=== PATIENT | female | born 1940 | race Caucasian/White ===

== ENCOUNTER → 2017-12-26 11:58 | Outpatient (CLI) | payer MEDICARE, SELFPAY ==
[2017-12-26 14:13] LABS: Absolute Lymphocyte Count 1.49 X10^3/ul (0.83-4.51); Absolute Neutrophil Count 2.7 X10^3/uL (2.0-7.7); Basophil# 0.02 X10^3/uL; Basophil% 0.4 % (0-1); Eosinophil# 0.17 X10^3/uL; Eosinophils% 3.5 % (0-5); Hematocrit 42.3 % (37-47); Hemoglobin 13.3 g/dl (12.0-15.0); Lymphocyte # 1.49 X10^3/ul (4.0); Lymphocyte % 30.9 % (19-41); Mean Corp Hgb Conc 31.4 g/gl (32-36); Mean Corpuscular Hgb 28.1 pg (27.0-32.0); Mean Corpuscular Volume 89.2 fL (81-99); Mean Platelet Vol. 9.1 fl (6.2-12.0); Monocyte# 0.43 X10^3/uL; Monocyte% 8.9 % (0-10); Neutrophil % 56.1 % (47-70); Platelet Count 327 K/mm3 (150-450); RBC Distribution Width CV 13.2 % (11.6-14.6); RBC Distribution Width SD 43.3 fl (35.1-43.9); Red Blood Count 4.74 M/mm3 (4.2-5.4); White Blood Count 4.8 K/mm3 (4.4-11.0)
[2017-12-26 14:14] LABS: POSITIVE COUNT NO; POSITIVE DIFFERENTIAL NO; POSITIVE MORPHOLOGY NO
[2017-12-26 14:49] LABS: ALB/GLOB Ratio 0.9 RATIO (0.9-2.4); AST(SGOT) 20 U/L (15-37); Alanine Aminotransfer ALT/SGPT 25 U/L (13-56); Albumin, Serum 3.6 g/dL (3.2-5.0); Alkaline Phosphatase 83 U/L (45-117); Anion Gap 7 (5-15); BUN 11 mg/dL (7-18); BUN/Creat Ratio 14.2 RATIO (10-20); Calcium,Total 8.6 mg/dL (8.5-10.1); Chloride 104 mmol/L (98-107); Creatinine, Serum 0.77 mg/dL (0.55-1.02); EST Glomerular Filtration Rate 77 mL/min (>60); Est Glom Filt Rate - Afr Amer 93 mL/min (>60); Free T3 2.9 pg/mL (2.18-3.98); Globulin 3.8 g/dL (2.2-4.2); Glucose 76 mg/dL (74-106); Protein, Total 7.4 g/dL (6.4-8.2); Sodium Level 138 mmol/L (136-145); T4 Free Direct 1.01 ng/dL (0.76-1.46); Thyroid Stim Hormone (TSH) 1.64 uIU/mL (0.358-3.74)
== END ==
PROVIDERS: Family Provider Family Medicine; PCP Family Medicine; Visit Provider Family Medicine
DX: E03.9 Hypothyroidism, unspecified (principal); R51 Headache
CPT/HCPCS: 36415; 80053; 84439; 84443; 84481; 85025

== ENCOUNTER → 2018-06-27 12:04 | Outpatient (CLI) | payer MEDICARE, SELFPAY ==
[2018-06-27 14:39] LABS: T4 Free Direct 0.81 ng/dL (0.76-1.46); Thyroid Stim Hormone (TSH) 7.64 uIU/mL (0.358-3.74)
== END ==
PROVIDERS: Family Provider Family Medicine; PCP Family Medicine; Visit Provider Family Medicine
DX: E03.9 Hypothyroidism, unspecified (principal)
CPT/HCPCS: 36415; 84439; 84443; 84481

== ENCOUNTER → 2018-09-26 11:59 | Outpatient (CLI) | payer MEDICARE, SELFPAY ==
[2018-09-26 14:21] LABS: Free T3 3.9 pg/mL (2.18-3.98); T4 Free Direct 1.82 ng/dL (0.76-1.46); Thyroid Stim Hormone (TSH) < 0.01 uIU/mL (0.358-3.74)
== END ==
PROVIDERS: Family Provider Family Medicine; PCP Family Medicine; Visit Provider Family Medicine
DX: E03.9 Hypothyroidism, unspecified (principal)
CPT/HCPCS: 36415; 84439; 84443; 84481

== ENCOUNTER → 2018-10-29 11:54 | Outpatient (CLI) | payer MEDICARE, SELFPAY ==
[2018-10-29 14:02] LABS: T4 Free Direct 1.29 ng/dL (0.76-1.46); Thyroid Stim Hormone (TSH) 0.07 uIU/mL (0.358-3.74)
== END ==
PROVIDERS: Family Provider Family Medicine; PCP Family Medicine; Visit Provider Family Medicine
DX: E03.9 Hypothyroidism, unspecified (principal)
CPT/HCPCS: 36415; 84439; 84443

== ENCOUNTER → 2019-01-09 15:32 | Outpatient (CLI) | payer MEDICARE, SELFPAY ==
[2019-01-09 18:12] LABS: T4 Free Direct 1.17 ng/dL (0.76-1.46); Thyroid Stim Hormone (TSH) 0.56 uIU/mL (0.358-3.74)
== END ==
PROVIDERS: Family Provider Family Medicine; PCP Family Medicine; Referring Provider Family Medicine; Visit Provider Family Medicine
DX: E03.9 Hypothyroidism, unspecified (principal)
CPT/HCPCS: 36415; 84439; 84443

== ENCOUNTER → 2019-04-10 | Outpatient (CLI) | payer MEDICARE, SELFPAY ==
[2019-04-10 15:26] LABS: Hematocrit 38.8 % (37-47); Hemoglobin 12.7 g/dl (12.0-15.0); Mean Corp Hgb Conc 32.7 g/gl (32-36); Mean Corpuscular Hgb 28.5 pg (27.0-32.0); Mean Corpuscular Volume 87.2 fL (81-99); Mean Platelet Vol. 9.1 fl (6.2-12.0); Platelet Count 269 K/mm3 (150-450); RBC Distribution Width CV 13.3 % (11.6-14.6); RBC Distribution Width SD 41.6 fl (35.1-43.9); Red Blood Count 4.45 M/mm3 (4.2-5.4)
[2019-04-10 15:27] LABS: Scan Indicated on CBC? Y/N NO
[2019-04-10 16:03] LABS: Vitamin B12 1435 pg/mL (211-911)
[2019-04-10 16:32] LABS: Anion Gap 7 (5-15); BUN 14 mg/dL (7-18); BUN/Creat Ratio 15.5 RATIO (10-20); Calcium,Total 8.9 mg/dL (8.5-10.1); Chloride 102 mmol/L (98-107); Cholesterol 218 mg/dL (200); EST Glomerular Filtration Rate 64 mL/min (>60); Est Glom Filt Rate - Afr Amer 77 mL/min (>60); Glucose 87 mg/dL (74-106); High Density Lipoprotein 71 mg/dL; Potassium 3.9 mmol/L (3.5-5.1); Sodium Level 139 mmol/L (136-145); T4 Free Direct 1.02 ng/dL (0.76-1.46)
== END | disposition home or self-care (01) ==
PROVIDERS: Family Provider Family Medicine; PCP Family Medicine; Referring Provider Family Medicine; Visit Provider Family Medicine
DX: E03.9 Hypothyroidism, unspecified (principal); G31.84 Mild cognitive impairment of uncertain or unknown etiology
CPT/HCPCS: 36415; 80048; 82465; 82607; 82746; 83718; 84439; 84443; 84481; 85027

== ENCOUNTER 2019-05-20 06:56 | Day surgery (SDC) | payer MEDICARE, SELFPAY ==
--- NOTE | 2019-05-05 01:35 | HP_ITS ---
Intake Vital Signs 05/06/19 Blood Pressure 176/82 H 05/06/19 Blood Pressure Location Rt brachial 05/05/19 Height 5 ft 05/05/19 Weight: 128 lb 05/05/19 Body Mass Index (BMI) 25.0 05/05/19 Blood Pressure 188/82 H 05/05/19 Blood Pressure Location Rt brachial 05/05/19 Respiratory Rate 14 05/05/19 Pulse Rate 74 05/05/19 Pulse Source Monitor 05/05/19 Temperature 98.3 F 05/05/19 Pulse Ox 99 05/05/19 Oxygen Delivery Method room air Intake Visit Reasons: C-Scope Consult/Last C-Scope Jabier 2011 [place] Therapist Required: No Is patient in pain?: No Allergies codeine Allergy (Unknown, Verified 05/05/19 13:18) Unknown shellfish derived Allergy (Unknown, Verified 05/05/19 13:18) Unknown Medications fluticasone propionate 50 mcg/actuation nasal spray,suspension 1 spray INTRANASAL DAILY PRN 05/05/19 [History Confirmed 05/05/19] levothyroxine 75 mcg capsule 75 mcg PO DAILY 05/05/19 [History] sodium chloride 0.65 % nasal spray aerosol 1 spray INTRANASAL ONCE 05/05/19 [History Confirmed 05/05/19] PFSH Medical History Elevated blood pressure reading in office without diagnosis of hypertension (Acute) Hemorrhoids (Acute) Thyroid disease (Acute) Surgical History Hx of dilation and curettage (Acute) Hx of colonoscopy (Acute) Family History Sister Colon cancer Liver cancer CVA (cerebral vascular accident) Thyroid disorder Brother Diabetes Sister Thyroid disorder Daughter Thyroid disorder Social History (Updated 05/05/19 @ 13:36 by Boris Irwin MD) Smoking Status: Never smoker second hand exposure: No alcohol intake: never substance use type: does not use caffeine: Yes what type of physical activity do you participate in: walking frequency: daily duration: < 15 minutes/day HPI HPI HPI: CRISTIANO VÁSQUEZ, is a 78 F who presents to the office today for HPI HPI Surgical H&P: Yes HPI: CRISTIANO VÁSQUEZ, is a 78 F who presents to the office today for surveillance colonoscopy. 78-year-old female. Dr. Thien Salazar on the patient's most recent colonoscopy March 2012. Polyp rested upon a Hauschild fold and was removed with a hot snare. Diverticulosis was identified. The polyp was in the distal ascending colon. Follow-up was recommended in 2 years. Final pathology showed tubular adenoma. This is the first of the patient's return. She denies bright red blood per rectum or melena. No abdominal pain. She has had some slight weight loss over last year but she has not drawn much attention to it. Family history is a sister who previously had to have a colostomy. The patient however is not completely sure whether the patient had colon cancer is the primar but that certainly is what is suspected ROS General General: Yes fatigue; no weight change, appetite, colon cancer or breast cancer HEENT HEENT: No difficulty swallowing, eye injury, eye surgery, swollen glands or hoarseness Endo Endocrine: Yes thyroid disease; no diabetes mellitus, thyroid cancer, Hair loss, heat intolerance or cold intolerance Skin Skin: No rash or changing moles Musc Musculoskeletal: No back problems, arthritis, rheumatoid arthritis, gout or joint pain Cardio Cardiovascular: Yes high blood pressure (not dx with Hypertension, but elevated bp); no murmur, pacemaker, heart disease, atrial fibrillation, heart attack, heart stent, palpitations, shortness of breat with exertion or chest pain Psych Psychiatric: No depression, anxiety or hearing voices Resp Respiratory: No shortness of breath, No sleep apnea, No cough, No COPD, No asthma, No emphysema, No wheezing Gastro Gastrointestinal: No abdominal pain, No nausea or vomiting, No diarrhea, No constipation, No blood in stool, No acid reflux, Yes hemorrhoids, No ulcers, No gallbladder problem, No black,tarry stools Sujit Hematologic: No blood thinners, No blood disorders, No bleeding, No anemia, No blood clots Exam Const General: cooperative, comfortable, no acute distress Nutritional Appearance: average body habitus Orientation: alert, awake, oriented x3 HENMT Head: normal to inspection Resp Effort & Inspection: normal respiratory effort Auscultation: clear to auscultation bilaterally Cardio Rate: regular rate Rhythm: regular rhythm Heart Sounds: no murmurs Other: Bilateral radials are 3+. Bilateral brachials 3+. Bilateral carotids 3+. No carotid bruit GI Palpation: soft, no hepatosplenomegaly Auscultation: normal bowel sounds Musc Cervical Spine: normal cervical lordosis Neuro Speech: speech normal Extrem General: no calf tenderness bilaterally Psych Affect: normal affect Assessment & Plan Problems 1. Personal history of colonic polyps Z86.010 2. Family history of colon cancer Z80.0 Plan Personal history of colon polyp in the ascending colon. Family history of colon cancer in a sister who at age 55 I recommended the patient a colonoscopy with possible biopsy or polypectomy is indicated. She is aware of the technique, benefit, risks, alternatives. She has had an opportunity to ask and have questions answered. We will schedule and proceed at her discretion. I anticipate utilizing monitored anesthesia care. CC: Dr. Melquiades Irwin M.D., F.A.C.S. Orders Orders: Colonoscopy 05/05/19 Z80.0, Z86.010 Coding Level of Care Code Off vis,new,level 2 Diagnoses Personal history of colonic polyps Z86.010 Family history of colon cancer Z80.0 Date _ Boris Irwin MD I have re-examined the patient. There are no clinical changes since date of exam.
[2019-05-05 13:17] VITALS: BMI 25.0
--- NOTE | 2019-05-20 | COLBX_PTH ---
PATIENT: CRISTIANO VÁSQUEZ LOC: EN U#:[id number] AGE/SX: 78/F ROOM: RE05/20/[address]: Dr. Boris Irwin MD : 1940 BED: DIS: 05/20/2019 SPEC #: [id number] RECD: 05/20/19 12:47 STATUS: VALERY TAMMY #: [id number] NUPUR: 05/20/19 00:[address]: Boris Irwin DEPT: SURGICAL PATHOLOGY RECD BY: Nathan Valenzuela ENTERED: 05/20/19 12:47 SP TYPE: COLON BX OTHR DR: Dr. Melquiades Valentin MD Tissues: A - Ascending colon B - Ascending colon C - SPLENIC FLEXURE Procedures: Surgery Specimen Level IV HEADER OPERATION: Colonoscopy (MAC) PRE-OP DIAGNOSIS: Personal history of polyps TISSUE SUBMITTED: A. Distal ascending polyp, B. Distal ascending polyp biopsy, C. Splenic flexure polyp biopsy MICROSCOPIC DIAGNOSIS A. Distal ascending colon polyp, biopsy: Fragments of hyperplastic polyp. B. Distal ascending polyp, biopsy: Colonic mucosa with no pathologic change. C. Chronic polyp at splenic flexure, biopsy: Fragments of hyperplastic polyp. AM:kristofer 05/21/19 MICROSCOPIC DESCRIPTION Slides are reviewed. GROSS DESCRIPTION A. Received is one container labeled with the patient name and designated ascending polyp. The specimen consists of one irregular fragment of light kennedy soft tissue that measures 0.5 x 0.5 x 0.1 cm. The specimen is totally submitted in one cassette. B. Received is one container labeled with the patient name and designated distal ascending polyp. The specimen consists of one irregular fragment of light kennedy soft tissue that measures 0.5 x 0.4 x 0.1 cm. The specimen is totally submitted in one cassette. C. Received is one container labeled with the patient name and designated splenic flexure polyp biposy. The specimen consists of two irregular fragments of light kennedy soft tissue that in aggregate measure 0.4 x 0.2 x 0.1 cm. The specimen is totally submitted in one cassette. /BEATRIS:kristofer 05/20/19 TC: 5 CPT: 95299 x3
[2019-05-20 07:24] VITALS: BP 179/72; PULSE 80; RESP 16; TEMP 36.5; O2SAT 99; BMI 24.0
[2019-05-20 08:22] VITALS: BP 165/85; BP 180/82; PULSE 76; RESP 14; TEMP 36.3; O2SAT 99
--- NOTE | 2019-05-20 08:23 | OP.ENDO_ITS ---
05/20/2019 Melquiades Valentin [address] [place] [address] Re : Colonoscopy procedure for Pilar Jasbir Dear Dr. Valentin This procedure was performed on Monday, May 20, 2019. My impressions and recommendations are as follows: Impressions : - Hemorrhoids found on perianal exam. - Diverticulosis in the sigmoid colon and in the descending colon. - One 7 mm polyp in the distal ascending colon, removed with a cold snare. Resected and retrieved. - One 3 mm polyp in the distal ascending colon, removed with a cold biopsy forceps. Resected and retrieved. - One 6 mm polyp at the splenic flexure, removed with a cold biopsy forceps. Resected and retrieved. Recommendations : - Discharge patient to home. - Resume previous diet. - Continue present medications. - Repeat colonoscopy in 5 years for surveillance based on pathology results. - Telephone my office for pathology results in 1 week. My findings are described in the full procedure note, which is enclosed. If I can be of further assistance, please feel free to contact me at Doctor phone number(s): Work: . Sincerely, Boris Irwin MD 05/20/2019 8:23:08 AM This report has been signed electronically.
[2019-05-20 08:26] VITALS: BP 168/81; BP 180/82; PULSE 69; RESP 14; O2SAT 100
[2019-05-20 08:31] VITALS: BP 170/75; BP 180/82; PULSE 67; RESP 14; O2SAT 98
[2019-05-20 08:32] VITALS: BP 180/82; BP 180/83; PULSE 66; RESP 14; TEMP 36.4; O2SAT 100
[2019-05-20 10:32] VITALS: BP 180/82
== END 2019-05-20 10:32 | disposition home or self-care (01) ==
LOC: EN 06:56 → AC 06:57
PROVIDERS: Family Provider Family Medicine; PCP Family Medicine; Referring Provider Surgery; Visit Provider Surgery
PROC: 0DJD8ZZ Inspection of Lower Intestinal Tract, Via Natural or Artificial Opening Endoscopic (ICD-10-PCS; CPT 45378; principal; 2019-05-20 07:55)
DX: K63.5 Polyp of colon (principal); K57.30 Diverticulosis of large intestine without perforation or abscess without bleeding; K64.9 Unspecified hemorrhoids; Z86.010 Personal history of colon polyps; Z80.0 Family history of malignant neoplasm of digestive organs; E06.9 Thyroiditis, unspecified; Z78.0 Asymptomatic menopausal state; Z87.442 Personal history of urinary calculi; Z79.899 Other long term (current) drug therapy
CPT/HCPCS: 45380; 45385; 88305; J7120

== ENCOUNTER → 2019-10-29 09:06 | Outpatient (CLI) | payer MEDICARE, SELFPAY ==
[2019-10-29 10:44] LABS: Free T3 2.1 pg/mL (2.18-3.98); T4 Free Direct 1.25 ng/dL (0.76-1.46); Thyroid Stim Hormone (TSH) 0.84 uIU/mL (0.358-3.74)
== END ==
PROVIDERS: Family Provider Family Medicine; PCP Family Medicine; Referring Provider Family Medicine; Visit Provider Family Medicine
DX: E03.9 Hypothyroidism, unspecified (principal)
CPT/HCPCS: 36415; 84439; 84443; 84481

== ENCOUNTER → 2020-04-20 09:03 | Outpatient (CLI) | payer MEDICARE, SELFPAY ==
[2020-04-20 12:17] LABS: Anion Gap 4 (5-15); BUN 17 mg/dL (7-18); BUN/Creat Ratio 20.8 RATIO (10-20); Chloride 99 mmol/L (98-107); Creatinine, Serum 0.82 mg/dL (0.55-1.02); EST Glomerular Filtration Rate 71 mL/min (>60); Est Glom Filt Rate - Afr Amer 86 mL/min (>60); Glucose 88 mg/dL (74-106); Potassium 3.7 mmol/L (3.5-5.1); Sodium Level 135 mmol/L (136-145)
== END ==
PROVIDERS: PCP Family Medicine; Referring Provider Nurse Practitioner Adult Health; Visit Provider Nurse Practitioner Adult Health
DX: I10 Essential (primary) hypertension (principal)
CPT/HCPCS: 36415; 80048

== ENCOUNTER → 2020-05-13 10:15 | Outpatient (CLI) | payer MEDICARE, SELFPAY ==
[2020-05-13 12:27] LABS: Hematocrit 37.2 % (37-47); Hemoglobin 12.2 g/dL (12.0-15.0)
[2020-05-13 13:09] LABS: Anion Gap 4 (5-15); BUN 13 mg/dL (7-18); BUN/Creat Ratio 18.1 RATIO (10-20); Chloride 94 mmol/L (98-107); Creatinine, Serum 0.72 mg/dL (0.55-1.02); EST Glomerular Filtration Rate 83 mL/min (>60); Est Glom Filt Rate - Afr Amer 100 mL/min (>60); Ferritin 163 ng/mL (8-252); Glucose 85 mg/dL (74-106); Magnesium 2.3 mg/dL (1.6-2.6); Sodium Level 130 mmol/L (136-145)
== END ==
PROVIDERS: PCP Family Medicine; Referring Provider Family Medicine; Visit Provider Family Medicine
DX: I10 Essential (primary) hypertension (principal); G47.62 Sleep related leg cramps; Z98.890 Other specified postprocedural states
CPT/HCPCS: 36415; 80048; 82728; 83735; 85014; 85018

== ENCOUNTER → 2021-04-21 08:39 | Outpatient (CLI) | payer MEDICARE, SELFPAY ==
[2021-04-21 10:41] LABS: AST(SGOT) 18 U/L (15-37); Alanine Aminotransfer ALT/SGPT 23 U/L (13-56); Albumin, Serum 3.8 g/dL (3.2-5.0); Alkaline Phosphatase 90 U/L (45-117); Anion Gap 6 (5-15); BUN 17 mg/dL (7-18); BUN/Creat Ratio 21.4 RATIO (10-20); Chloride 100 mmol/L (98-107); Creatinine, Serum 0.79 mg/dL (0.55-1.02); EST Glomerular Filtration Rate 74 mL/min (>60); Est Glom Filt Rate - Afr Amer 89 mL/min (>60); Globulin 3.7 g/dL (2.2-4.2); Glucose 88 mg/dL (74-106); Potassium 3.9 mmol/L (3.5-5.1); Protein, Total 7.5 g/dL (6.4-8.2); Sodium Level 138 mmol/L (136-145); T4 Free Direct 1.21 ng/dL (0.76-1.46); Thyroid Stim Hormone (TSH) 0.31 uIU/mL (0.358-3.74)
[2021-04-21 10:52] LABS: Microalbumin,Random Urine 9.4 mg/L (NO RANGE EST.); Microalbumin:Creatinine Ratio 18.6 mg/g CRE (<30 mg/g CRE)
== END ==
PROVIDERS: PCP Family Medicine; Visit Provider Family Medicine
DX: I10 Essential (primary) hypertension (principal); E03.9 Hypothyroidism, unspecified
CPT/HCPCS: 36415; 80053; 82043; 82570; 84439; 84443

== ENCOUNTER → 2021-05-12 08:50 | Outpatient (CLI) | payer MEDICARE, SELFPAY ==
--- NOTE | 2021-05-12 09:00 | BD_ITS ---
STUDY: DUAL ENERGY X-RAY ABSORPTIOMETRY / DXA REASON FOR EXAM: Female, 80 years old. M810 -- OSTEO. TECHNIQUE: Bone Mineral Density (BMD) measurements of lumbar spine and bilateral hips were obtained. COMPARISON: None. FINDINGS: Lumbar Spine (L1-L4): g/cm2 (0.720) / T-score (-2.7) / Z-score (0.0) Findings are suggestive of osteoporosis with a high fracture risk. Left Femur Total: g/cm2 (0.629) / T-score (-2.6) / Z-score (-0.4) Left Femoral Neck: g/cm2 (0.512) / T-score (-3.0) / Z-score (-0.6) Right Femur Total: g/cm2 (0.723) / T-score (-1.8) / Z-score (0.4) Right Femoral Neck: g/cm2 (0.560) / T-score (-2.6) / Z-score (-0.2) BD/Dexa Bone Density Study IMPRESSION: The patient is considered osteoporotic as outlined below according to World Waldem[employer] Organization (WHO) criteria with a high fracture risk. Reference Information: The T-score is the number of standard deviations above or below the standard which is normal for young adults at their peak bone mineral density. The World Health Organization (WHO) interprets the T-scores as follows: Above -1 Normal bone density Between -1 and -2.5 Osteopenia Equal to / or below -2.5 Osteoporosis As a practical clinical guideline, osteopenia may be graded as follows: Mild -1 through -1.5 Moderate -1.6 through -2.0 Severe -2.1 through -2.4 The Z-score is the number of standard deviations above or below age-matched controls. A Z-score of less than -1.5 would be considered abnormal. References: 1. NIH Osteoporosis and Related Bone Diseases www osteo.org 2. International Society for Clinical Densitometry www iscd.org 3. National Osteoporosis Foundation www nof.org Electronically Signed: Ramírez Hood MD at 14:23 EDT , Service support ,
== END ==
PROVIDERS: PCP Family Medicine; Referring Provider Nurse Practitioner Family; Visit Provider Nurse Practitioner Family
DX: Z13.820 Encounter for screening for osteoporosis (principal); M81.0 Age-related osteoporosis without current pathological fracture
CPT/HCPCS: 77080

== ENCOUNTER → 2021-06-09 11:03 | Outpatient (CLI) | payer MEDICARE, SELFPAY ==
--- NOTE | 2021-06-09 11:06 | RAD_ITS ---
STUDY: X-RAY - LUMBAR SPINE REASON FOR EXAM: Female, 80 years old. SACROILIITIS TECHNIQUE: 5 view(s) of the lumbar spine were obtained. COMPARISON: None FINDINGS: There is straightening of the normal lumbar lordosis. There is no substantial scoliosis. There is a normal alignment of the vertebrae. Normal vertebral bodies and endplates. There is multi-level degenerative disc disease with multi-level disc space narrowing. Facet joint osteoarthritis. There is atherosclerotic calcification of the abdominal aorta without a demonstrated aneurysm. RAD/L/S Spine Min 4 Views IMPRESSION: Degenerative changes of the spine, as detailed above. Electronically Signed: Ramírez Hood MD at 15:43 EDT , Service support ,
--- NOTE | 2021-06-09 11:09 | RAD_ITS ---
STUDY: X-RAY - SACROILIAC JOINTS REASON FOR EXAM: Female, 80 years old. FALL AT HOME, SACROILIITIS TECHNIQUE: 3 view(s) of the sacroiliac joints were obtained. COMPARISON: None. FINDINGS: There are degenerative changes of the bilateral sacroiliac joints. Normal visualized sacral ala and sacrum. Degenerative changes of the lower lumbar spine. Normal visualized iliac bones. Normal visualized soft tissue structures. RAD/S-I Jts 3 or More Views IMPRESSION: Degenerative changes. Electronically Signed: Ramírez Hood MD at 15:42 EDT , Service support ,
[2021-06-09 12:47] LABS: Anion Gap 8 (5-15); BUN 11 mg/dL (7-18); BUN/Creat Ratio 13.8 RATIO (10-20); Calcium,Total 9.4 mg/dL (8.5-10.1); Chloride 96 mmol/L (98-107); EST Glomerular Filtration Rate 73 mL/min (>60); Est Glom Filt Rate - Afr Amer 89 mL/min (>60); Glucose 98 mg/dL (74-106); Potassium 3.6 mmol/L (3.5-5.1); Sodium Level 132 mmol/L (136-145)
== END ==
PROVIDERS: PCP Family Medicine; Referring Provider Family Medicine; Visit Provider Family Medicine
DX: M46.1 Sacroiliitis, not elsewhere classified (principal); R11.0 Nausea
CPT/HCPCS: 36415; 72110; 72202; 80048

== ENCOUNTER → 2021-07-13 09:33 | Outpatient (CLI) | payer MEDICARE, SELFPAY ==
[2021-07-13 12:47] LABS: Anion Gap 3 (5-15); BUN 14 mg/dL (7-18); BUN/Creat Ratio 19.1 RATIO (10-20); Calcium,Total 9.3 mg/dL (8.5-10.1); Chloride 104 mmol/L (98-107); Cholesterol 194 mg/dL (200); Creatinine, Serum 0.73 mg/dL (0.55-1.02); EST Glomerular Filtration Rate 81 mL/min (>60); Est Glom Filt Rate - Afr Amer 98 mL/min (>60); Glucose 92 mg/dL (74-106); High Density Lipoprotein 75 mg/dL; Potassium 3.8 mmol/L (3.5-5.1); Sodium Level 136 mmol/L (136-145); Thyroid Stim Hormone (TSH) 0.35 uIU/mL (0.358-3.74); Triglycerides 65 mg/dL; Very Low Density Lipoprotein 13 mg/dL (5-40)
== END ==
PROVIDERS: PCP Family Medicine; Referring Provider Family Medicine; Visit Provider Nurse Practitioner Family
DX: Z00.00 Encounter for general adult medical examination without abnormal findings (principal); E03.9 Hypothyroidism, unspecified
CPT/HCPCS: 36415; 80048; 80061; 84443

== ENCOUNTER 2022-01-16 14:10 | Outpatient (CLI) | payer MEDICARE, SELFPAY ==
[2022-01-16 15:36] LABS: Vitamin D,25 Hydroxy 51.5 ng/mL
[2022-01-16 15:39] LABS: Erythrocyte Sedimentation Rate 20 mm/hr (0-30)
[2022-01-16 15:53] LABS: AST(SGOT) 17 U/L (15-37); Alanine Aminotransfer ALT/SGPT 20 U/L (13-56); Albumin, Serum 3.5 g/dL (3.2-5.0); Alkaline Phosphatase 89 U/L (45-117); Anion Gap 7 (5-15); BUN 21 mg/dL (7-18); BUN/Creat Ratio 21.8 RATIO (10-20); Calcium,Total 8.6 mg/dL (8.5-10.1); Chloride 103 mmol/L (98-107); Creatinine, Serum 0.96 mg/dL (0.55-1.02); EST Glomerular Filtration Rate 59 mL/min (>60); Est Glom Filt Rate - Afr Amer 71 mL/min (>60); Globulin 3.6 g/dL (2.2-4.2); Glucose 87 mg/dL (74-106); Potassium 3.9 mmol/L (3.5-5.1); Protein, Total 7.1 g/dL (6.4-8.2); Sodium Level 139 mmol/L (136-145); T4 Free Direct 1.37 ng/dL (0.76-1.46); Thyroid Stim Hormone (TSH) 0.26 uIU/mL (0.358-3.74)
== END 2022-01-16 23:59 | disposition home or self-care (01) ==
LOC: MFPLAB 14:11
PROVIDERS: PCP Family Medicine; Visit Provider Family Medicine
DX: I10 Essential (primary) hypertension (principal); R63.4 Abnormal weight loss; M81.0 Age-related osteoporosis without current pathological fracture; E03.9 Hypothyroidism, unspecified
CPT/HCPCS: 36415; 80053; 82306; 84439; 84443; 84481; 85652

== ENCOUNTER → 2022-03-13 | Outpatient (CLI) | payer MEDICARE, SELFPAY ==
[2022-03-13 11:35] LABS: T4 Free Direct 1.05 ng/dL (0.76-1.46); Thyroid Stim Hormone (TSH) 1.94 uIU/mL (0.358-3.74)
== END | disposition home or self-care (01) ==
LOC: MFPLAB 09:21
PROVIDERS: PCP Family Medicine; Visit Provider Family Medicine
DX: E03.9 Hypothyroidism, unspecified (principal)
CPT/HCPCS: 36415; 84439; 84443

== ENCOUNTER → 2022-07-10 | Outpatient (CLI) | payer MEDICARE, SELFPAY ==
[2022-07-10 18:45] LABS: Absolute Lymphocyte Count 1.58 X10^3/uL (0.83-4.51); Basophil# 0.03 X10^3/uL; Basophil% 0.7 % (0-1); Eosinophil# 0.25 X10^3/uL; Eosinophils% 5.9 % (0-5); Hematocrit 34.9 % (37-47); Hemoglobin 11.5 g/dL (12.0-15.0); Lymphocyte # 1.58 X10^3/ul (0.83-4.51); Lymphocyte % 37.4 % (19-41); Mean Corpuscular Hgb 30.2 pg (27.0-32.0); Mean Corpuscular Volume 91.6 fL (81-99); Mean Platelet Vol. 9.2 fl (6.2-12.0); Monocyte# 0.37 X10^3/uL; Monocyte% 8.7 % (0-10); NRBC Flagged by Analyzer 0 % (0-5); Neutrophil % 47.3 % (47-70); Platelet Count 273 K/mm3 (150-450); RBC Distribution Width CV 13.5 % (11.6-14.6); Red Blood Count 3.81 M/mm3 (4.2-5.4); White Blood Count 4.2 K/mm3 (4.4-11.0)
[2022-07-10 20:18] LABS: AST(SGOT) 20 U/L (15-37); Alanine Aminotransfer ALT/SGPT 22 U/L (13-56); Albumin, Serum 3.6 g/dL (3.2-5.0); Alkaline Phosphatase 94 U/L (45-117); Anion Gap 7 (5-15); BUN 25 mg/dL (7-18); BUN/Creat Ratio 22.1 RATIO (10-20); Calcium,Total 9.3 mg/dL (8.5-10.1); Chloride 103 mmol/L (98-107); Creatinine, Serum 1.13 mg/dL (0.55-1.02); EST Glomerular Filtration Rate 49 mL/min (>60); Est Glom Filt Rate - Afr Amer 59 mL/min (>60); Globulin 3.5 g/dL (2.2-4.2); Glucose 89 mg/dL (74-106); Potassium 3.6 mmol/L (3.5-5.1); Protein, Total 7.1 g/dL (6.4-8.2); Sodium Level 141 mmol/L (136-145); Vitamin D,25 Hydroxy 47.8 ng/mL
== END | disposition home or self-care (01) ==
LOC: MFPLAB 16:38
PROVIDERS: PCP Family Medicine; Visit Provider Family Medicine
DX: M81.0 Age-related osteoporosis without current pathological fracture (principal)
CPT/HCPCS: 36415; 80053; 82306; 85025

== ENCOUNTER 2022-11-13 17:13 | Emergency (ER) | payer MEDICARE, SELFPAY ==
[2022-11-13 17:17] VITALS: BP 180/73; PULSE 82; RESP 13; TEMP 36.3; O2SAT 99; BMI 22.6
--- NOTE | 2022-11-13 18:18 | EKG12_ITS ---
Test Reason : DYSRHYTHMIA Blood Pressure : / mmHG Vent. Rate : 091 BPM Atrial Rate : 091 BPM P-R Int : 166 ms QRS Dur : 100 ms QT Int : 368 ms P-R-T Axes : 019 -21 067 degrees QTc Int : 452 ms Normal sinus rhythm Nonspecific ST and T wave abnormality Abnormal ECG Confirmed by RIO CROSS, SE ([id number]), deputy editor in chief BECKA HERNANDEZ ([id number]) on 11/15/2022 9:02:53 AM Referred By: SUN Confirmed By:SE PATE MD
--- NOTE | 2022-11-13 18:19 | EDS_ITS ---
HPI History of Present Illness Chief Complaint: Syncope Narrative Narrative: 81-year-old female presenting with syncope. She states that the only time she has fainted in the past was when she was a child at 13. She states she cut her hands on deb wire and this caused her to faint when she saw the blood. Patient states she was otherwise healthy before the syncopal episode today. She was in the basement helping her hang something and was holding her arms above her head for extended period of time. She states he was standing in one place. She states her told her that it was done and she became kind of foggy after this. states she kind of slowly fell to the ground. He does not think she hit her head. He states she did not totally lose consciousness and it was kind of slowly speaking. He asked her if she wanted help and she said no initially. He states that after about 5 or 10 minutes he decided to call 911. When EMS arrived they evaluated her the basement for about 15 minutes and then decided to take her to the ambulance. At that point it was determined since the patient is still little confused and weak that she should be transported to the ED. Patient states she feels well now. She does not have a headache. She denies any other injuries. She states he is thirsty. Patient states she does have a history of high blood pressure but only takes blood pressure medication when her blood pressure is a little bit high. She did not have to do that today. Patient states that she also has a history of hypothyroidism for which she takes Synthroid. She not had any medication changes. Patient denies chest pain, palpitations, shortness of breath, fever, chills, cough. She has no urinary complaints, GI complaints. [facility] Medical History Elevated blood pressure reading in office without diagnosis of hypertension Family history of colon cancer Hemorrhoids Hypertension Personal history of colonic polyps Thyroid disease Home Medications fluticasone propionate 50 mcg/actuation nasal spray,suspension 1 spray intranasal DAILY PRN Allergies 05/05/19 [History Last Taken Unknown] levothyroxine 75 mcg capsule 75 mcg PO DAILY 05/05/19 [History Last Taken Unknown] sodium chloride 0.65 % nasal spray aerosol (Saline Nasal) 1 spray intranasal PRN PRN Allergies 05/05/19 [History Last Taken Unknown] Allergy/AdvReac Type Severity Reaction Status Date / Time codeine Allergy Unknown Unknown Verified 05/20/19 07:18 shellfish derived Allergy Unknown Unknown Verified 05/20/19 07:18 Family History Sister Colon cancer Liver cancer CVA (cerebral vascular accident) Thyroid disorder Brother Diabetes Sister Thyroid disorder Daughter Thyroid disorder Surgical History Hx of colonoscopy Hx of dilation and curettage Social History Smoking Status: Never smoker second hand exposure: No alcohol intake: never substance use type: does not use caffeine: Yes what type of physical activity do you participate in: walking frequency: daily duration: < 15 minutes/day ROS ROS ED Constitutional Constitutional ED: Denies chills or fever(s) Eyes Eyes: Denies change in vision or diplopia ENT ENT ED: Denies rhinorrhea or sore throat Cardiovascular Cardiovascular: Reports other Details: Near syncope ; Denies chest pain or palpitations Respiratory/Chest Respiratory/Chest: Denies cough or dyspnea Gastrointestinal Gastrointestinal: Denies abdominal pain or constipation Genitourinary Genitourinary ED: Denies dysuria or hematuria Musculoskeletal Musculoskeletal: Denies arthralgias Integumentary Denies abscess or Abrasions Neurologic Neurologic: Denies headache(s) Psychiatric Psychiatric: Denies anxiety or depression EXAM Physical Exam Const Vital Signs: 11/13/22 17:17 11/13/22 17:20 11/13/22 18:38 Temperature 97.3 F L Temperature Source Temporal Pulse Rate 82 Pulse Rate [Lying] Pulse Rate [Sitting (for 1 minute prior to obtaining)] Pulse Rate [Standing (for 1 minute prior to obtaining)] Respiratory Rate 13 Respiratory Effort Normal Non-Labored Respiratory Pattern Normal Blood Pressure 180/73 H Blood Pressure [Lying] Blood Pressure [Sitting (for 1 minute prior to obtaining)] Blood Pressure [Standing (for 1 minute prior to obtaining)] Blood Pressure Mean 108 Blood Pressure Mean [Lying] Blood Pressure Mean [Sitting (for 1 minute prior to obtaining)] Blood Pressure Mean [Standing (for 1 minute prior to obtaining)] Pulse Ox 99 99 Oxygen Delivery Method Room Air Room Air 11/13/22 18:56 11/13/22 19:13 Temperature Temperature Source Pulse Rate 97 Pulse Rate [Lying] 93 Pulse Rate [Sitting (for 1 minute prior to obtaining)] 97 Pulse Rate [Standing (for 1 minute prior to obtaining)] 109 H Respiratory Rate 12 Respiratory Effort Respiratory Pattern Blood Pressure Blood Pressure [Lying] 173/78 H Blood Pressure [Sitting (for 1 minute prior to obtaining)] 174/76 H Blood Pressure [Standing (for 1 minute prior to obtaining)] 149/99 H Blood Pressure Mean Blood Pressure Mean [Lying] 109 Blood Pressure Mean [Sitting (for 1 minute prior to obtaining)] 108 Blood Pressure Mean [Standing (for 1 minute prior to obtaining)] 115 Pulse Ox 98 Oxygen Delivery Method Room Air Positive well nourished General Appearance ED: NAD; Negative for pallor HEENT Reports moist mucous membranes and dry mucous membranes Negative for trauma Mouth ED: Yes dry mucous membranes Mouth: dry mucous membranes Eyes PERRL and EOMs intact bilaterally General Eye ED: Negative for pale conjunctiva or scleral icterus Resp normal respiratory effort and clear to auscultation bilaterally Auscultation: Negative for rales, rhonchi or wheezes Cardio regular rate and regular rhythm GI normal to inspection, nondistended, normoactive bowel sounds Back/Spine no CVA tenderness Neuro oriented x3, CN's II-XII intact bilaterally and no sensory deficits noted Sensorium / Orientation: alert Motor Exam: strength 5/5 throughout Psych mental status grossly normal Skin no rashes or lesions noted and no wounds General Skin Exam: Negative for jaundice or pallor MDM MDM MDM Narrative Medical decision making narrative: Patient presenting with episode of what sounds like she has a episode of syncope. Although patient's does not believe she was unconscious when he turned around she was on the floor and he had to sit her up to get her to talk. She was initially unresponsive. I do believe she did lose consciousness based on what he is telling me. Her does not believe she hit her head, although he states he did not see her fall. He states when he turned around she was laying on the ground flat. She was initially confused and this lasted for about an hour. I do not have any signs of external head trauma however I do believe she hit her head. She is alert and awake with a normal neurologic exam at this point. Differential this time includes but is not limited to concussion, orthostatic hypotension, cardiogenic syncope, dehydration, hyponatremia, hypoglycemia, hypokalemia, anemia, dysrhythmia, we will obtain an EKG to assess for dysrhythmia as well as high-sensitivity troponin. CBC to assess for hemoglobin, white blood cell count, differential. BMP to assess for renal function, electrolytes, glucose, anion gap. Urinalysis to assess for UTI as a source of her symptoms as she was very confused. CT brain to assess for intracranial injury. Orthostatic vital signs were positive. 174/78-149/99 heart rate from 82 to 109. She was given a liter of IV fluids. Urinalysis was negative for infection. High-sensitivity troponin is 6. EKG normal sinus rhythm with a ventricular rate of [address] to T wave changes in V4, V5. No ST elevations or depressions. No noted dysrhythmia. I did attempt obtain a chest x-ray but the patient refused this. Also given her syncopal event in which she hit her head and was confused for short while I did attempt to obtain a CT. The patient refused this also. Clinically at this point she is alert and awake. I did discuss with her the possibility of intracranial bleeding. I specifically addressed epidermal hematomas as they are known to occur after head trauma with loss of consciousness. This is also associated with a period of alertness then rapid deterioration back to unconsciousness. She still does not wish to have a head CT. I spoke with Dr. Aldridge guarding the patient and discussed her orthostatic vital signs and her presentation as well as her creatinine being elevated. She is cleared from a point of syncope with the Advance syncope rule. He states that he can have her follow-up in office but also did recommend she stay for those trip test. After speaking with her again she refuses. I will have to sign her out AMA. She does acknowledge risk of severe disability, injury, . She is also told she can return at any time. Impression: 1. Syncope 2. Elevated creatinine 3. Orthostatic hypotension 4. Closed head injury Lab Data Labs: Laboratory Results - last 24 hr 11/13/22 11/13/22 11/13/22 18:31 18:33 18:33 WBC 9.1 RBC 4.35 Hgb 12.7 Hct 38.7 MCV 89.0 MCH 29.2 MCHC 32.8 RDW Std Deviation 43.9 RDW Coeff of Saumya 13.3 Plt Count 278 MPV 8.8 Immature Gran % (Auto) 0.400 Neut % (Auto) 77.2 H Lymph % (Auto) 11.6 L Hancock % (Auto) 8.7 Eos % (Auto) 1.7 Baso % (Auto) 0.4 Absolute Neuts (auto) 7.0 Absolute Lymphs (auto) 1.05 Nucleated RBC % 0 Sodium 139 Potassium 3.7 Chloride 104 Carbon Dioxide 28.0 Anion Gap 7 BUN 20 H Creatinine 1.43 H Estim Creat Clear Calc 23.58 Est GFR (MDRD) Af Amer 45 L Est GFR (MDRD) Non-Af 37 L BUN/Creatinine Ratio 14.0 Glucose 106 Calcium 9.1 Troponin I High Sens 6 B-Natriuretic Peptide Urine Color Yellow Urine Clarity Clear Urine pH 7.0 Ur Specific [place] 1.010 Urine Protein 15 H Urine Glucose (UA) Normal Urine Ketones Negative Urine Occult Blood 50 H Urine Nitrite Negative Urine Bilirubin Negative Urine Urobilinogen Normal Ur Leukocyte Esterase 25 H Urine RBC 0-5 SEEN Urine WBC 0 SEEN Ur Squamous Epith Cells 0 SEEN Urine Bacteria 0 SEEN Urine Mucus 0 SEEN 11/13/22 18:33 WBC RBC Hgb Hct MCV MCH MCHC RDW Std Deviation RDW Coeff of Saumya Plt Count MPV Immature Gran % (Auto) Neut % (Auto) Lymph % (Auto) [place] % (Auto) Eos % (Auto) Baso % (Auto) Absolute Neuts (auto) Absolute Lymphs (auto) Nucleated RBC % Sodium Potassium Chloride Carbon Dioxide Anion Gap BUN Creatinine Estim Creat Clear Calc Est GFR (MDRD) Af Amer Est GFR (MDRD) Non-Af BUN/Creatinine Ratio Glucose Calcium Troponin I High Sens B-Natriuretic Peptide 53.2 Urine Color Urine Clarity Urine pH Ur Specific [place] Urine Protein Urine Glucose (UA) Urine Ketones Urine Occult Blood Urine Nitrite Urine Bilirubin Urine Urobilinogen Ur Leukocyte Esterase Urine RBC Urine WBC Ur Squamous Epith Cells Urine Bacteria Urine Mucus Discharge Plan Triage Chief Complaint: Syncope ED Provider: Matthew Borjas Dx/Rx/DC Orders Instructions: ED Concussion, ED Dehydration (Adult), ED Fainting, Uncertain Cause Prescriptions: No Action levothyroxine 75 mcg capsule 75 mcg capsule 75 mcg PO DAILY sodium chloride [Saline Nasal] 0.65 % aerosol,spray 1 spray INTRANASAL PRN PRN (Reason: Allergies) fluticasone propionate 50 mcg/actuation spray,suspension 1 spray INTRANASAL DAILY PRN (Reason: Allergies) Primary Care Provider: Melquiades Valentin Referrals: Melquiades Valentin MD [Primary Care Provider] - Disposition Disposition: Against Medical Advice
[2022-11-13 18:38] VITALS: O2SAT 99
[2022-11-13 18:39] LABS: Absolute Lymphocyte Count 1.05 X10^3/uL (0.83-4.51); Basophil# 0.04 X10^3/uL; Basophil% 0.4 % (0-1); Eosinophil# 0.15 X10^3/uL; Eosinophils% 1.7 % (0-5); Hematocrit 38.7 % (37-47); Hemoglobin 12.7 g/dL (12.0-15.0); Lymphocyte # 1.05 X10^3/ul (0.83-4.51); Lymphocyte % 11.6 % (19-41); Mean Corp Hgb Conc 32.8 g/dL (32-36); Mean Corpuscular Hgb 29.2 pg (27.0-32.0); Mean Platelet Vol. 8.8 fl (6.2-12.0); Monocyte# 0.79 X10^3/uL; Monocyte% 8.7 % (0-10); NRBC Flagged by Analyzer 0 % (0-5); Neutrophil % 77.2 % (47-70); Platelet Count 278 K/mm3 (150-450); RBC Distribution Width CV 13.3 % (11.6-14.6); RBC Distribution Width SD 43.9 fl (35.1-43.9); Red Blood Count 4.35 M/mm3 (4.2-5.4); White Blood Count 9.1 K/mm3 (4.4-11.0)
[2022-11-13 18:40] LABS: Bacteria 0 SEEN /hpf (None Seen); Mucous, Urine 0 SEEN /hpf (<or=2+); Squamous Epithelial Cells - UA 0 SEEN /hpf (5-10); White Blood Cells 0 SEEN /hpf (0-5)
[2022-11-13 18:41] LABS: Color, Urine Yellow (Yellow); Glucose, Dipstick Normal (Normal); Ketone-Dipstick Negative (Negative); Leukocyte Esterase-Dipstick 25 /ul (Negative); Nitrite-Dipstick Negative (Negative); Occult Blood-Urine 50 /ul (Negative); Protein-Dipstick 15 mg/dl (Negative); Urine Bilirubin Dipstick Negative (Negative); Urine Clarity Clear (Clear); Urine Urobilinogen Normal (Normal)
[2022-11-13 18:52] LABS: Red Blood Cells-Urine 0-5 SEEN /hpf (0-5)
[2022-11-13 18:56] VITALS: BP 149/99; BP 173/78; BP 174/76; PULSE 109; PULSE 93; PULSE 97
[2022-11-13 18:57] LABS: Anion Gap 7 (5-15); BUN 20 mg/dL (7-18); Calcium,Total 9.1 mg/dL (8.5-10.1); Chloride 104 mmol/L (98-107); Creatinine, Serum 1.43 mg/dL (0.55-1.02); EST Glomerular Filtration Rate 37 mL/min (>60); Est Glom Filt Rate - Afr Amer 45 mL/min (>60); Estimated Creatinine Clearance 23.58 ml/min; Glucose 106 mg/dL (74-106); Potassium 3.7 mmol/L (3.5-5.1); Sodium Level 139 mmol/L (136-145); Troponin-I HS 6 pg/mL (3.0-54.0)
[2022-11-13 19:13] VITALS: PULSE 97; RESP 12; O2SAT 98
[2022-11-13] MEDS: 0.9% Normal Saline 1,000 ML 999 ML IV (19:22)
[2022-11-13 20:50] LABS: BNP,B-Type NATRIURETIC PEPTIDE 53.2 pg/mL (0-100)
== END 2022-11-13 21:18 | disposition left against medical advice (07) ==
PROVIDERS: Emergency Provider Student in an Organized Health Care Education/Training Program; PCP Family Medicine; Visit Provider Student in an Organized Health Care Education/Training Program
DX: S06.9X9A Unspecified intracranial injury with loss of consciousness of unspecified duration, initial encounter (principal); X58.XXXA Exposure to other specified factors, initial encounter; I95.1 Orthostatic hypotension; R79.89 Other specified abnormal findings of blood chemistry; E03.9 Hypothyroidism, unspecified; R03.0 Elevated blood-pressure reading, without diagnosis of hypertension; Y93.89 Activity, other specified; Y99.8 Other external cause status; Z79.899 Other long term (current) drug therapy; Z53.29 Procedure and treatment not carried out because of patient's decision for other reasons
CPT/HCPCS: 80048; 81001; 83880; 84484; 85025; 93005; 99285; J7030; A4216

== ENCOUNTER → 2022-11-20 | Outpatient (CLI) | payer MEDICARE, SELFPAY ==
[2022-11-20 15:59] LABS: AST(SGOT) 19 U/L (15-37); Alanine Aminotransfer ALT/SGPT 23 U/L (13-56); Albumin, Serum 3.7 g/dL (3.2-5.0); Alkaline Phosphatase 79 U/L (45-117); Anion Gap 11 (5-15); BUN 14 mg/dL (7-18); BUN/Creat Ratio 14.6 RATIO (10-20); Calcium,Total 9.2 mg/dL (8.5-10.1); Chloride 95 mmol/L (98-107); Creatinine, Serum 0.96 mg/dL (0.55-1.02); EST Glomerular Filtration Rate 59 mL/min (>60); Est Glom Filt Rate - Afr Amer 71 mL/min (>60); Globulin 3.7 g/dL (2.2-4.2); Glucose 92 mg/dL (74-106); Potassium 3.8 mmol/L (3.5-5.1); Protein, Total 7.4 g/dL (6.4-8.2); Sodium Level 134 mmol/L (136-145); T4 Free Direct 1.39 ng/dL (0.76-1.46); Thyroid Stim Hormone (TSH) 2.68 uIU/mL (0.358-3.74)
== END | disposition home or self-care (01) ==
PROVIDERS: PCP Family Medicine; Referring Provider Nurse Practitioner Family; Visit Provider Nurse Practitioner Family
DX: R79.89 Other specified abnormal findings of blood chemistry (principal); E03.9 Hypothyroidism, unspecified
CPT/HCPCS: 36415; 80053; 84439; 84443

== ENCOUNTER 2023-02-16 09:30 | Outpatient (RCR) | payer MEDICARE, SELFPAY ==
--- NOTE | 2023-01-26 10:01 | HP.PTEVAL ---
Patient's Visit Information CRISTIANO VÁSQUEZ is a 82 year old F referred to Physical Therapy by Dr. 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 Date of Evaluation: 01/26/23 Physical Therapist: Brody La PT, Cert MDT, OCS - Visit Plan Frequency: 1-2x /Week Duration: 4 Weeks Plan: PT INTERVETIONS WITH WB ACTIVITIES,STRENGTHNEING HIPS,BACK STRENGTHNEING ,POSTURAL EX'S AND PATIENT EDUCATION - Subjective This 82 y/o female presents to physical therapy with osteoporosis spine- hips. Patient had bone density test showed osteoporosis . Patient seen DR catarino NGUYEN didn't start any medication. Patient has no falls . No recent x-rays . Patient has generalized neck and back pian. No abnormal night pain. Coughing sneezing -. Bowel/bladder -. Denies paresthesia/tingling-. Patient sleeping good. Patient is able to perform ADLS and housework with min limitations. Goal to learn ex's for condition. SOCIAL: . VOCATION: retired - Objective POSTURE: mild forward posture. GAIT: reciprocal pattern. AROM: BUE WFL, BLE WFL. MMT: quads/hamstrings 4/5 ,hip flexion /abduction 4-/5 ,ankle 4/5 ,BUE grossly 4/5. LUMBAR ROM: flexion min loss ,extension mod loss ,side glides min loss. CERVICAL ROM: flexion min loss ,extension mod loss ,lateral flexion/rotation mod loss - Special Tests C/S Radiculapathy - Left Upper limb tension test: Negative C/S Radiculapathy - Right Upper limb tension test: Negative C/S Radiculapathy - Left Spurlings: Negative C/S Radiculapathy - Right Spurlings: Negative C/S Radiculapathy - Left Cervical distraction: Negative C/S Radiculapathy - Right Cervical distraction: Negative C/S Radiculapathy - Left Relief test: Negative C/S Radiculapathy - Right Relief test: Negative C/S Radiculapathy - Valsalva: Negative L/S Slump test left side: Negative L/S Slump test right side: Negative L/S Left Straight Leg Raise: Negative L/S Right Straight Leg Raise: Negative R Hip Scour: Negative R Hip SHAHBAZ - Intraarticular Pathology: Negative R Hip Trendelenberg - Glut Medius: Negative L Hip Scour: Negative L Hip Quadrant - Intraarticular Pathology: Negative L Hip Trendelenberg - Glut Medius: Negative - Balance/Special Test Scores Oswestry Low Back Score: 6 - Goals Goal 1:: Patient to be I with HEP for osteoporosis Goal Time Frame: 4-6 Weeks Goal 2:: Patient to demonstrate 75% improvement with improved function Goal Time Frame: 4-6 Weeks Goal 3:: Patient to improve back oswestry score by 2 points Goal Time Frame: 4-6 Weeks - Rehabilitation Potential Physical Therapy Diagnosis: Patient has osteoporosis with generalized weakness and decrease HEP Rehabilitation Potential: Fair - Anticipated Interventions Patient/Client Instruction: Educate patient on: Condition, Plan of Care For the Purpose of:: To decrease pain, To increase ROM, To improve muscle performance and motor function, To improve ability to perform ADL's, To improve ability of physical actions for home/community/work/leisure Therapeutic Exercise to Include: Strength training, Power training, Endurance training, Postural training, Flexibilty training, Dynamic Lumbar Stabilization Comment: HIPS For the Purpose of:: To improve muscle performance and motor function, To improve ability to perform ADL's, To increase tolerance to activity/condition/position, To improve ability of physical actions for home/community/work/leisure, To improve health of tissue, To decrease soft tissue restriction Thank you for the opportunity to evaluate your patient. For Medicare and Medicare HMO plans, please review the plan of care and approve it. It will need to be FAXED BACK to us at [phone] for Medicare purposes. For Medicare only, by signing this I certify the plan of care. Please let me know if there are questions or concerns regarding this plan of care. Physician Signature: Date:
== END 2023-02-16 19:00 | disposition home or self-care (01) ==
LOC: PT 09:30
PROVIDERS: PCP Family Medicine; Referring Provider Family Medicine; Visit Provider Family Medicine
DX: M81.0 Age-related osteoporosis without current pathological fracture (principal)
CPT/HCPCS: 97110; 97162

== ENCOUNTER → 2023-04-05 | Outpatient (CLI) | payer MEDICARE, SELFPAY ==
[2023-04-05 18:23] LABS: Anion Gap 4 (5-15); BUN 19 mg/dL (7-18); BUN/Creat Ratio 17.1 RATIO (10-20); Calcium,Total 9.3 mg/dL (8.5-10.1); Chloride 103 mmol/L (98-107); Creatinine, Serum 1.11 mg/dL (0.55-1.02); EST Glomerular Filtration Rate 50 mL/min (>60); Est Glom Filt Rate - Afr Amer 60 mL/min (>60); Glucose 101 mg/dL (74-106); Potassium 4.2 mmol/L (3.5-5.1); Sodium Level 137 mmol/L (136-145)
== END | disposition home or self-care (01) ==
LOC: MFPLAB 14:42
PROVIDERS: PCP Family Medicine; Visit Provider Family Medicine
DX: I10 Essential (primary) hypertension (principal)
CPT/HCPCS: 36415; 80048

== ENCOUNTER → 2024-09-30 | Outpatient (CLI) | payer MEDICARE, SELFPAY ==
[2024-09-30 19:01] LABS: Vitamin D,25 Hydroxy 46.3 ng/mL
[2024-09-30 19:09] LABS: Anion Gap 4 (5-15); BUN 24 mg/dL (7-18); BUN/Creat Ratio 20.7 RATIO (10-20); Calcium,Total 9.7 mg/dL (8.5-10.1); Chloride 101 mmol/L (98-107); Creatinine, Serum 1.16 mg/dL (0.55-1.02); EST Glomerular Filtration Rate 47 mL/min (>60); Est Glom Filt Rate - Afr Amer 57 mL/min (>60); Free T3 1.4 pg/mL (2.18-3.98); Glucose 98 mg/dL (74-106); Sodium Level 137 mmol/L (136-145); T4 Free Direct 0.76 ng/dL (0.76-1.46)
[2024-09-30 19:27] LABS: Microalbumin,Random Urine 25.2 mg/L (NO RANGE EST.); Microalbumin:Creatinine Ratio 150.9 mg/g CRE (<30 mg/g CRE)
== END | disposition home or self-care (01) ==
LOC: MFPLAB 15:36
PROVIDERS: PCP Family Medicine; Visit Provider Family Medicine
DX: I10 Essential (primary) hypertension (principal); M81.0 Age-related osteoporosis without current pathological fracture; E03.9 Hypothyroidism, unspecified
CPT/HCPCS: 36415; 80048; 82043; 82306; 82570; 84439; 84443; 84481

== ENCOUNTER → 2024-12-23 | Outpatient (CLI) | payer MEDICARE, SELFPAY ==
--- NOTE | 2024-12-23 09:46 | RAD_ITS ---
EXAM: XR Chest, 2 Views CLINICAL INDICATION: TECHNIQUE: Frontal and lateral views of the chest. COMPARISON: No relevant prior studies available. FINDINGS: LUNGS AND PLEURAL SPACES: Unremarkable. No consolidation. No pneumothorax. HEART: Unremarkable. No cardiomegaly. MEDIASTINUM: Unremarkable. Normal mediastinal contour. BONES/JOINTS: Unremarkable. No acute fracture. RAD/Chest PA and Lateral IMPRESSION: No acute cardiopulmonary process. Reading Location: [facility]
[2024-12-23 12:25] LABS: Absolute Neutrophil Count 5.6 X10^3/uL (2.0-7.7); Basophil# 0.04 X10^3/uL; Basophil% 0.5 % (0-1); Eosinophil# 0.26 X10^3/uL; Eosinophils% 3.2 % (0-5); Hematocrit 37.4 % (37-47); Hemoglobin 12.5 g/dL (12.0-15.0); Lymphocyte % 17.1 % (19-41); Mean Corp Hgb Conc 33.4 g/dL (32-36); Mean Corpuscular Hgb 29.1 pg (27.0-32.0); Mean Corpuscular Volume 87.2 fL (81-99); Mean Platelet Vol. 9.3 fl (6.2-12.0); Monocyte# 0.86 X10^3/uL; Monocyte% 10.5 % (0-10); NRBC Flagged by Analyzer 0 % (0-5); Neutrophil # 5.61 X10^3/uL (2.7-7.7); Neutrophil % 68.5 % (47-70); Platelet Count 283 K/mm3 (150-450); RBC Distribution Width CV 12.9 % (11.6-14.6); RBC Distribution Width SD 40.9 fl (35.1-43.9); Red Blood Count 4.29 M/mm3 (4.2-5.4); White Blood Count 8.2 K/mm3 (4.4-11.0)
[2024-12-23 12:55] LABS: ALB/GLOB Ratio 1.2 RATIO (0.9-2.4); AST(SGOT) 25 U/L (<=31); Alanine Aminotransfer ALT/SGPT 13 U/L (<=34); Albumin, Serum 4.1 g/dL (3.4-4.8); Alkaline Phosphatase 95 U/L (35-104); Anion Gap 11 (5-15); BUN 11 mg/dL (4-19); BUN/Creat Ratio 12.6 RATIO (10-20); Calcium,Total 9.5 mg/dL (7.6-11.0); Carbon Dioxide 27.5 mmol/L (21.0-32.0); Chloride 91 mmol/L (98-108); Creatinine, Serum 0.88 mg/dL (0.70-1.20); EST Glomerular Filtration Rate 64 (>60); Globulin 3.3 g/dL (2.2-4.2); Glucose 89 mg/dL (70-99); Potassium 4.2 mmol/L (3.3-5.1); Protein, Total 7.3 g/dL (5.9-8.4); Sodium Level 130 mmol/L (133-145); Total Bilirubin 0.38 mg/dL (0.00-1.30)
[2024-12-24 12:09] LABS: CRP, High Sensitivity 30.47 mg/L (0.00-3.00)
== END | disposition home or self-care (01) ==
LOC: MTLAB 09:43
PROVIDERS: PCP Family Medicine; Referring Provider Family Medicine; Visit Provider Family Medicine
DX: R55 Syncope and collapse (principal); J22 Unspecified acute lower respiratory infection
CPT/HCPCS: 36415; 71046; 80053; 85025; 85379; 86141

== ENCOUNTER → 2024-12-23 | Outpatient (CLI) | payer MEDICARE, SELFPAY ==
--- NOTE | 2024-12-23 15:17 | CT_ITS ---
PROCEDURE: CTA CHEST W/WO CONTRAST REASON FOR EXAM: Syncopal episodes. TECHNIQUE: CTA imaging of the chest with intravenous contrast. 3D reconstructions. CONTRAST: 100 cc of Isovue 370. COMPARISON: None. FINDINGS: Hardware: None. Lymph nodes: No mediastinal hilar or axillary lymphadenopathy. Heart: Normal heart size. No pericardial effusion. Coronary artery calcification. RV/LV Diameter Ratio: N/A Thoracic Aorta: No thoracic aortic aneurysm or dissection. Atherosclerotic calcific plaques. Pulmonary Vessels: No evidence of acute pulmonary emboli through the major subsegmental branches. Most Proximal Level of Embolus (if embolus present): N/A Lungs and Airways: The lungs are normally expanded and clear. Pleura: No pleural effusion. No pneumothorax. Upper Abdomen: Visualized portions of the upper abdominal viscera are unremarkable. Bones: Degenerative changes of the thoracic spine. CT/CTA Chest W/WO Contrast IMPRESSION: No evidence of pulmonary embolism. No acute abnormality is seen. One or more dose reduction techniques were used (e.g., Automated exposure contr ol, adjustment of the mA and/or kV according to patient size, use of iterative reconstruction technique). Reading Location: [id number]
== END | disposition home or self-care (01) ==
LOC: CT 15:03
PROVIDERS: PCP Family Medicine; Referring Provider Family Medicine; Visit Provider Family Medicine
DX: R05.9 Cough, unspecified (principal)
CPT/HCPCS: 71275; Q9967

== ENCOUNTER → 2025-01-20 | Outpatient (CLI) | payer MEDICARE, SELFPAY ==
--- NOTE | 2025-01-20 12:32 | ECHOD_ITS ---
Reason For Study Reason For Study: MURMUR Procedure This was a 2D Doppler, Color Flow transthoracic echocardiogram. Exam performed in department. Left Ventricle Normal LV size. Left ventricular systolic function is normal. The left ventricular ejection fraction is 65 %. No regional wall motion abnormalities noted. Right Ventricle Normal RV size. Normal systolic function. Mitral Valve Normal mitral valve. Tricuspid Valve Normal tricuspid valve. Mild (1+) tricuspid valve insufficiency. Pulmonary artery systolic pressure is 30 mmHg. Aortic Valve Trisinus/trileaflet aortic valve. Peak aortic valve gradient 14 mmHg. Mean aortic valve gradient 8 mmHg. Mild aortic stenosis. Mild (1+) aortic valve insufficiency. Pulmonic Valve Normal pulmonic valve. Great Vessels Normal aortic root. The pulmonary artery is normal size. Inferior vena cava collapse with respiration. Pericardium/Pleural No pericardial effusion. MMode/2D Measurements & Calculations LVIDd: 4.1 cm IVSd: 0.92 cm LVOT diam: 2.0 cm LVIDs: 2.5 cm LVPWd: 0.98 cm LVOT area: 3.2 cm2 RVDd: 3.1 cm FS: 37.9 % Ao root diam: 3.1 cm LAV(MOD-bp): 22.0 ml LVAd ap4: 22.3 cm2 LAV(MOD-bp) Indexed: 14.7 ml/m2 LVLd ap4: 6.9 cm LAV(MOD-sp2): 21.5 ml EDV(MOD-sp4): 58.0 ml LAV(MOD-sp4): 21.6 ml EDV(sp4-el): 61.8 ml LVAs ap4: 11.8 cm2 LVLs ap4: 5.8 cm ESV(MOD-sp4): 20.6 ml ESV(sp4-el): 20.6 ml EF(MOD-sp4): 64.5 % EF(sp4-el): 66.6 % SV(MOD-sp4): 37.4 ml SV(sp4-el): 41.2 ml LA A4 area: 11.2 cm2 SI(MOD-sp4): 25.1 ml/m2 LA dimension(2D): 2.5 cm RA A4 area: 10.3 cm2 TAPSE: 2.3 cm Time Measurements MV dec time: 0.23 sec Doppler Measurements & Calculations MV E max dheeraj: 82.8 cm/sec Lat Peak E' Dheeraj: 6.7 cm/sec Med Peak E' Dheeraj: 5.5 cm/sec MV A max dheeraj: 140.2 cm/sec E/E' lat: 12.3 E/E' med: 15.0 MV E/A: 0.59 Ao V2 max: 189.5 cm/sec AI max dheeraj: 432.0 cm/sec LV V1 max: 86.4 cm/sec Ao max P.4 mmHg AI max P.7 mmHg LV V1 max P.0 mmHg Ao V2 mean: 132.8 cm/sec LV V1 mean P.6 mmHg Ao mean P.6 mmHg AI dec slope: 290.0 cm/sec2 LV V1 mean: 59.8 cm/sec Ao V2 VTI: 41.4 cm AI P1/2t: 436.3 msec LV V1 VTI: 19.7 cm AV (velocity ratio): 0.48 NICOLE(I,D): 1.5 cm2 NICOLE(V,D): 1.5 cm2 SV(LVOT): 63.7 ml PA V2 max: 76.1 cm/sec TR max dheeraj: 254.2 cm/sec TR max P.8 mmHg ECHO/Echo Complete Interpretation Summary Normal LV size. Left ventricular systolic function is normal. The left ventricular ejection fraction is 65 %. Mean aortic valve gradient 8 mmHg. Mild aortic stenosis. Ordering Physician: Melquiades Valentin Referring Physician: Melquiades Valentin Performed By: Freda Garland RDCS
== END | disposition home or self-care (01) ==
LOC: CVS 12:29
PROVIDERS: PCP Family Medicine; Referring Provider Family Medicine; Visit Provider Family Medicine
DX: R01.1 Cardiac murmur, unspecified (principal)
CPT/HCPCS: 93306

== ENCOUNTER → 2025-01-27 | Outpatient (CLI) | payer MEDICARE, SELFPAY ==
[2025-01-27 15:00] LABS: Absolute Neutrophil Count 2.3 X10^3/uL (2.0-7.7); Basophil# 0.05 X10^3/uL; Basophil% 1.1 % (0-1); Eosinophil# 0.28 X10^3/uL; Eosinophils% 5.9 % (0-5); Hematocrit 37.9 % (37-47); Hemoglobin 12.1 g/dL (12.0-15.0); Lymphocyte % 33.6 % (19-41); Mean Corp Hgb Conc 31.9 g/dL (32-36); Mean Corpuscular Hgb 28.7 pg (27.0-32.0); Mean Corpuscular Volume 89.8 fL (81-99); Mean Platelet Vol. 9.3 fl (6.2-12.0); Monocyte# 0.56 X10^3/uL; Monocyte% 11.8 % (0-10); NRBC Flagged by Analyzer 0 % (0-5); Neutrophil # 2.26 X10^3/uL (2.7-7.7); Neutrophil % 47.4 % (47-70); Platelet Count 304 K/mm3 (150-450); RBC Distribution Width SD 46.2 fl (35.1-43.9); Red Blood Count 4.22 M/mm3 (4.2-5.4); White Blood Count 4.8 K/mm3 (4.4-11.0)
[2025-01-27 15:30] LABS: ALB/GLOB Ratio 1.5 RATIO (0.9-2.4); AST(SGOT) 24 U/L (<=31); Alanine Aminotransfer ALT/SGPT 13 U/L (<=34); Albumin, Serum 4.1 g/dL (3.4-4.8); Alkaline Phosphatase 84 U/L (35-104); Anion Gap 15 (5-15); BUN 17 mg/dL (4-19); BUN/Creat Ratio 18.3 RATIO (10-20); Calcium,Total 9.6 mg/dL (7.6-11.0); Carbon Dioxide 24.2 mmol/L (21.0-32.0); Chloride 99 mmol/L (98-108); Creatinine, Serum 0.91 mg/dL (0.70-1.20); EST Glomerular Filtration Rate 61 (>60); Globulin 2.7 g/dL (2.2-4.2); Glucose 79 mg/dL (70-99); Potassium 4.1 mmol/L (3.3-5.1); Protein, Total 6.8 g/dL (5.9-8.4); Sodium Level 138 mmol/L (133-145); Total Bilirubin 0.47 mg/dL (0.00-1.30)
== END | disposition home or self-care (01) ==
LOC: MFPLAB 11:30
PROVIDERS: PCP Family Medicine; Referring Provider Family Medicine; Visit Provider Family Medicine
DX: I35.0 Nonrheumatic aortic (valve) stenosis (principal); E03.9 Hypothyroidism, unspecified; I10 Essential (primary) hypertension
CPT/HCPCS: 36415; 80053; 84439; 84443; 85025

== ENCOUNTER 2025-02-03 12:56 | Emergency (ER) | payer MEDICARE, SELFPAY ==
[2025-02-03 12:57] VITALS: BP 183/84; PULSE 79; RESP 16; TEMP 36.3; O2SAT 97
--- NOTE | 2025-02-03 14:08 | EKG12_ITS ---
Test Reason : Blood Pressure : */* mmHG Vent. Rate : 80 BPM Atrial Rate : 80 BPM P-R Int : 194 ms QRS Dur : 88 ms QT Int : 416 ms P-R-T Axes : 71 25 52 degrees QTcB Int : 479 ms Normal sinus rhythm Cannot rule out Septal infarct , age undetermined Abnormal ECG Confirmed by Cipriano Lopez ([id number]), book editor BECKA HERNANDEZ ([id number]) on 02/06/2025 6:46:22 AM Referred By: Confirmed By: Cipriano Lopez
--- NOTE | 2025-02-03 14:08 | CT_ITS ---
PROCEDURE: BRAIN/HEAD WITHOUT CONTRAST 02/03/2025 REASON FOR EXAM: DIZZINESS TECHNIQUE: Head CT without intravenous contrast. Coronal and Sagittal reconstruction series were provided. One or more dose reduction techniques were used (e.g., Automated exposure control, adjustment of the mA and/or kV according to patient size, use of iterative reconstruction technique. RADIATION DOSE SUMMARY: CTDlvol: 44.99 mGy DLP: 829.85 mGycm COMPARISON: None FINDINGS: Brain: Low density in the periventricular white matter suggests mild chronic small vessel ischemic changes. Tiny lacune in the left basal ganglion. Atherosclerotic plaque formation of the cavernous portions of the internal carotid arteries. CSF Spaces: Mild generalized cerebral atrophy Sinuses/Mastoids: Clear at visualized levels Bones: Unremarkable CT/Brain/Head without Contrast IMPRESSION: CHRONIC CHANGES. NO ACUTE FINDINGS. Reading Location: [place] [id number]
[2025-02-03 14:30] LABS: Absolute Neutrophil Count 5.3 X10^3/uL (2.0-7.7); Basophil# 0.02 X10^3/uL; Basophil% 0.3 % (0-1); Hematocrit 40.2 % (37-47); Hemoglobin 13.9 g/dL (12.0-15.0); Lymphocyte % 6.7 % (19-41); Mean Corp Hgb Conc 34.6 g/dL (32-36); Mean Corpuscular Hgb 29.1 pg (27.0-32.0); Mean Corpuscular Volume 84.3 fL (81-99); Monocyte% 3.4 % (0-10); NRBC Flagged by Analyzer 0 % (0-5); Neutrophil # 5.32 X10^3/uL (2.7-7.7); Neutrophil % 89.3 % (47-70); POSITIVE DIFFERENTIAL YES; Platelet Count 299 K/mm3 (150-450); RBC Distribution Width CV 13.4 % (11.6-14.6); RBC Distribution Width SD 41.9 fl (35.1-43.9); Red Blood Count 4.77 M/mm3 (4.2-5.4)
[2025-02-03] MEDS: 0.9% Normal Saline (1000mL) 1,000 ML 999 ML IV (14:31)
[2025-02-03] MEDS: Ondansetron 4 MG/2 ML Vial IV (14:31)
[2025-02-03 14:33] VITALS: BP 218/96; PULSE 81; RESP 13; O2SAT 96
--- NOTE | 2025-02-03 14:48 | EDS_ITS ---
HPI <ASH Duckworth - Last Filed: 02/03/25 17:47> History of Present Illness Chief Complaint: Hypertension Narrative Narrative: Patient is an 84-year-old female with history of hypothyroidism who presents to the emergency department for elevated blood pressure, headache, nausea and vomiting. Patient states that she recently had a workup secondary to a syncopal episode that occurred a couple months ago. All of her laboratory values were unremarkable. Patient states that she has been having headache, dizziness that started yesterday, notes that her blood pressure has been more elevated. She is also been having episodes of nausea and vomiting. Denies any fever or chills, positive for diarrhea. PFSH <ASH Duckworth - Last Filed: 02/03/25 17:47> [facility] Medical History (Updated 02/03/25 @ 17:45 by ASH Duckworth) Urinary incontinence Hypertension Family history of colon cancer Personal history of colonic polyps Elevated blood pressure reading in office without diagnosis of hypertension Hemorrhoids Thyroid disease Home Medications ?Medication ?Instructions ?Recorded ?Last Taken ?Type fluticasone propionate 50 1 spray intranasal DAILY PRN 05/05/19 Unknown History mcg/actuation nasal Allergies spray,suspension levothyroxine 75 mcg capsule 75 mcg PO DAILY 05/05/19 Unknown History sodium chloride 0.65 % nasal spray 1 spray intranasal PRN PRN 05/05/19 Unknown History aerosol (Saline Nasal) Allergies amlodipine 5 mg tablet 5 mg PO DAILY #30 tabs 02/03 Unknown Rx ondansetron 4 mg disintegrating 4 mg PO Q8H PRN PRN Na usea #10 tabs 02/03/25 Unknown Rx tablet Allergy/AdvReac Type Severity Reaction Status Date / Time codeine Allergy Unknown Unknown Verified 02/03/25 12:57 shellfish derived Allergy Unknown Unknown Verified 02/03/25 12:57 Family History Sister Colon cancer Liver cancer CVA (cerebral vascular accident) Thyroid disorder Brother Diabetes Sister Thyroid disorder Daughter Thyroid disorder Surgical History Hx of dilation and curettage Hx of colonoscopy Social History Smoking Status: Never smoker second hand exposure: No alcohol intake: never substance use type: does not use caffeine: Yes what type of physical activity do you participate in: walking frequency: daily duration: < 15 minutes/day ROS <ASH Duckworth - Last Filed: 02/03/25 17:47> ROS ED ROS Narrative Constitutional: Negative for fever, chills, weight loss. Positive for weakness Eyes: Negative for vision loss, vision change, double vision ENT: Negative for any sore throat, ear pain, congestion Cardiovascular: Negative for any chest pain, tightness, palpitations Respiratory: Negative for any cough, sputum production, hemoptysis, dyspnea, dyspnea on exertion, orthopnea Gastrointestinal: Negative for any abdominal pain, constipation, blood in stool, blood in vomit. Positive for nausea, vomiting, diarrhea : Negative for any urinary frequency, dysuria, retention, blood in urine Muscle skeletal: Negative for any neck pain, back pain Neurological: Negative for any syncope, dizziness. Positive for headache Skin: Negative for any rashes, itching, abrasions, lacerations Psychiatric: Negative for any depression, anxiety, stress, suicidal ideation, homicidal ideation Hematologic: Negative for any excessive bruising, easy bleeding EXAM <ASH Duckworth - Last Filed: 02/03/25 17:47> Physical Exam Narrative Exam Narrative: Vital signs reviewed. On my examination of the patient's blood pressure is 215/90. Patient is alert and orient x 4. HEET: Head normocephalic atraumatic, TMs clear bilaterally. Posterior pharynx is clear, dry mucous membranes. Nares clear bilaterally. Pupils are equal round reactive to light. Neck: Supple with no lymphadenopathy or tenderness. No signs of meningismus. Cardiac: Regular rate and rhythm no murmurs gallops or rubs, equal peripheral pulses bilaterally. Respiratory: Lungs clear to auscultation bilaterally. No chest tenderness. Abdomen: Soft, nontender, nondistended. No abdominal bruit or pulsatile masses. No hepatosplenomegaly Extremities: No peripheral edema, no signs of gross trauma or deformity. Active full range of motion of all extremities. Neuro: Cranial nerves II through XII intact, no focal neurological deficits. NIH stroke scale 0. Skin: Clean dry and intact with no rash, purpura, petechiae, vesicles or pustules. Backs/flank: No CVA tenderness, no midline spinal tenderness, no deformity. Psych: Normal mood and affect. No SI, HI or acute psychosis. Const Vital Signs: 02/03/25 12:57 02/03/25 14:33 02/03/25 14:33 Temperature 97.3 F L Temperature Source Temporal Pulse Rate 79 81 Respiratory Rate 16 13 Respiratory Effort Normal Respiratory Pattern Normal Blood Pressure 183/84 H 218/96 H Blood Pressure Mean 117 136 Pulse Ox 97 96 Oxygen Delivery Method Room Air Room Air 02/03/25 15:00 02/03/25 16:00 02/03/25 17:00 Temperature Temperature Source Pulse Rate 81 74 76 Respiratory Rate 13 14 12 Respiratory Effort Respiratory Pattern Blood Pressure 196/80 H 172/82 H 170/77 H Blood Pressure Mean 118 112 108 Pulse Ox 96 95 97 Oxygen Delivery Method Room Air Room Air Room Air 02/03/25 18:03 Temperature 98.2 F Temperature Source Pulse Rate 80 Respiratory Rate 12 Respiratory Effort Respiratory Pattern Blood Pressure 174/76 H Blood Pressure Mean 108 Pulse Ox 96 Oxygen Delivery Method Positive well nourished and well developed General Appearance ED: well developed <Dr. Melquiades Barrientos DO - Last Filed: 02/03/25 23:05> Physical Exam Const Vital Signs: 02/03/25 12:57 02/03/25 14:33 02/03/25 14:33 Temperature 97.3 F L Temperature Source Temporal Pulse Rate 79 81 Respiratory Rate 16 13 Respiratory Effort Normal Respiratory Pattern Normal Blood Pressure 183/84 H 218/96 H Blood Pressure Mean 117 136 Pulse Ox 97 96 Oxygen Delivery Method Room Air Room Air 02/03/25 15:00 02/03/25 16:00 02/03/25 17:00 Temperature Temperature Source Pulse Rate 81 74 76 Respiratory Rate 13 14 12 Respiratory Effort Respiratory Pattern Blood Pressure 196/80 H 172/82 H 170/77 H Blood Pressure Mean 118 112 108 Pulse Ox 96 95 97 Oxygen Delivery Method Room Air Room Air Room Air 02/03/25 18:03 Temperature 98.2 F Temperature Source Pulse Rate 80 Respiratory Rate 12 Respiratory Effort Respiratory Pattern Blood Pressure 174/76 H Blood Pressure Mean 108 Pulse Ox 96 Oxygen Delivery Method MDM <ASH Duckworth - Last Filed: 02/03/25 17:47> MDM Lab Data Labs: Laboratory Results - last 24 hr 02/03/25 02/03/25 02/03/25 14:05 15:45 16:43 WBC 6.0 RBC 4.77 Hgb 13.9 Hct 40.2 MCV 84.3 MCH 29.1 MCHC 34.6 RDW Std Deviation 41.9 RDW Coeff of [place] 13.4 Plt Count 299 MPV 9.0 Immature Gran % (Auto) 0.300 Neut % (Auto) 89.3 H Lymph % (Auto) 6.7 L [place] % (Auto) 3.4 Eos % (Auto) 0.0 Baso % (Auto) 0.3 Absolute Neuts (auto) 5.3 Absolute Lymphs (auto) 0.40 L Nucleated RBC % 0 Sodium 132 L Potassium 3.7 Chloride 93 L Carbon Dioxide 24.1 Anion Gap 15 BUN 16 Creatinine 0.91 Est GFR (MDRD) Non-Af 61 BUN/Creatinine Ratio 17.9 Glucose 131 H Calcium 9.5 Total Bilirubin 0.62 AST 32 ALT 13 Alkaline Phosphatase 86 Troponin T High Sens 13 Troponin T Hi Sens 2 Hr 13 Total Protein 7.7 Albumin 4.3 Globulin 3.4 Albumin/Globulin Ratio 1.3 Lipase 27 Urine Color Yellow Urine Clarity Clear Urine pH 6.5 Ur Specific [place] 1.010 Urine Protein 30 H Urine Glucose (UA) Normal Urine Ketones 15 H Urine Occult Blood 50 H Urine Nitrite Negative Urine Bilirubin Negative Urine Urobilinogen Normal Ur Leukocyte Esterase 25 H Urine RBC 5-10 SEEN Urine WBC 0-5 SEEN Ur Squamous Epith Cells 0 SEEN Ur Transition Epith Cell 0-5 SEEN Urine Bacteria 0 SEEN Urine Mucus 0 SEEN Radiography Diagnostic Testing: Clinical Impression(s) from Imaging Studies Brain CT 02/03/25 14:08 IMPRESSION: CHRONIC CHANGES. NO ACUTE FINDINGS. Reading Location: [facility] Treatment and Re-Evaluation :: Differential diagnosis includes however is not limited to: Hypertensive urgency, hypertensive emergency, subarachnoid hemorrhage, viral gastroenteritis, electrolyte abnormality, dehydration Patient's alert and orient x 4, patient is hypertensive however is in no obvious distress. Patient will receive a full workup including troponins, abdominal laboratory values such as CBC CMP lipase. CT scan of the brain as well as a chest x-ray will be obtained. Patient will be given IV fluids, IV Zofran, 10 mg IV labetalol. All radiologic examinations were read, reviewed by the emergency department attending. From these reads, a plan of care will be put in place. Patient will need to be reevaluated. Patient CT scan of the brain shows no acute findings. Patient's CBC shows no abnormality, chemistries show no acute process. Lipase was negative. Troponin was 13 which is negative. Patient repeat blood pressure is 196/80., Given another dose of IV labetalol. Patient on reevaluation looked improved. Patient's blood pressure is now 176/72 . Patient was able to pass a p.o. challenge. Currently waiting for second troponin Patient's blood pressure 170/77. Repeat troponin was negative. At this time, patient was able to pass a p.o. challenge, I do not believe the patient is having any surgical or cardiac emergency. Patient will be placed on Zofran for home as needed. She will be placed on a low-dose amlodipine 5 mg daily for this high blood pressure. She is happy with this plan of care, she is instructed return for any worsening symptoms. She is instructed to follow-up with her PCP regarding her new blood pressure medication and to follow-up. All questions answered, stable for discharge. <Dr. Melquiades Barrientos, DO - Last Filed: 02/03/25 23:05> [facility] Narrative Medical decision making narrative: I have personally performed a face to face assessment of the patient and have reviewed the BRANDI Note. I performed a substantive portion of the visit including all aspects of the following. My resendez findings include: History: Patient presents with dizziness, nausea, and vomiting that began today. Patient states she feels like she is off balance. Patient states is worse when she tries to walk. Patient states nothing makes it better. Patient states this began when she woke up this morning. Patient states she has similar episode a couple days ago that resolved spontaneously. Patient also noted that her blood pressure was elevated today. Patient states that with the episode a couple days ago, she had decreased hearing. Patient denies any changes in her hearing today. Patient denies any tinnitus. Patient denies any visual changes. Exam: Vital signs are stable except for an elevated blood pressure of 183/84. Patient is afebrile. Patient is in no acute distress. Oral mucosa is pink and somewhat dry. Pupils are equal, round, and reactive to light bilaterally. Extraocular muscles are intact. There is no nystagmus noted. Cranial nerves II through XII are intact. Strength is 5/5 bilaterally upper and lower extremities. There are no sensory deficits noted. Heart was regular rate and rhythm. There is a grade 2/6 systolic murmur at the right upper sternal border. Lungs are clear and equal bilaterally. Abdomen is soft. Bowel sounds are normal. There is no tenderness. Medical Decision Making: Differential diagnosis includes vertigo, labyrinthitis, electrolyte abnormality, stroke, hypertensive urgency, hypertensive emergency, viral illness, and anxiety. EKG will be obtained to assess for cardiac dysrhythmia and cardiac ischemia. The scan of the brain will be obtained to assess for stroke or intracranial bleeding. CBC will be obtained to assess for leukocytosis and anemia. Comprehensive metabolic profile will be obtained to assess for hepatic function, renal function, and electrolyte abnormality. Lipase will be obtained to assess for pancreatitis. Urinalysis will be obtained to assess for urinary tract infection and hematuria. High-sensitivity troponin will be obtained to assess for cardiac ischemia. COVID-19, influenza, and RSV PCR will be obtained to assess for viral illness. Patient was given labetalol. Patient was given IV fluids. Patient was given a dose of Zofran. EKG was obtained. On my independent interpretation, it showed normal sinus rhythm with a rate of 80. MN interval, QRS interval, and QTc intervals are within normal limits. [place] is normal. There are no acute ST or T wave changes. This is unchanged compared to previous EKG dated 11/13/2022. CT scan of the brain was obtained. There is no acute intracranial abnormality. There are chronic changes noted. This was interpreted by the radiologist and was also independently reviewed by myself. CBC was reviewed and was within normal limits. Comprehensive metabolic profile was reviewed. Glucose was slightly elevated at 131. Sodium was slightly low at 132 and chloride was slightly low at 93. The remainder is within normal limits. Lipase was reviewed and was normal at 27. High-sensitivity troponin was reviewed and was normal at 13. Urinalysis was reviewed. Leukocyte esterase was 25. Occult blood was 50. There were 5-10 red blood cells and 0-5 white blood cells. 2-hour repeat high- sensitivity troponin was reviewed and was also 13. Patient was advised of her findings. Patient was given a prescription for amlodipine for her blood pressure. Patient was instructed to follow-up with her primary care physician in 5 to 7 days for further evaluation. Patient understood and was agreeable with the plan. All questions were answered. Lab Data Labs: Laboratory Results - last 24 hr 02/03/25 02/03/25 02/03/25 14:05 15:45 16:43 WBC 6.0 RBC 4.77 Hgb 13.9 Hct 40.2 MCV 84.3 MCH 29.1 MCHC 34.6 RDW Std Deviation 41.9 RDW Coeff of [place] 13.4 Plt Count 299 MPV 9.0 Immature Gran % (Auto) 0.300 Neut % (Auto) 89.3 H Lymph % (Auto) 6.7 L [place] % (Auto) 3.4 Eos % (Auto) 0.0 Baso % (Auto) 0.3 Absolute Neuts (auto) 5.3 Absolute Lymphs (auto) 0.40 L Nucleated RBC % 0 Sodium 132 L Potassium 3.7 Chloride 93 L Carbon Dioxide 24.1 Anion Gap 15 BUN 16 Creatinine 0.91 Est GFR (MDRD) Non-Af 61 BUN/Creatinine Ratio 17.9 Glucose 131 H Calcium 9.5 Total Bilirubin 0.62 AST 32 ALT 13 Alkaline Phosphatase 86 Troponin T High Sens 13 Troponin T Hi Sens 2 Hr 13 Total Protein 7.7 Albumin 4.3 Globulin 3.4 Albumin/Globulin Ratio 1.3 Lipase 27 Urine Color Yellow Urine Clarity Clear Urine pH 6.5 Ur Specific [place] 1.010 Urine Protein 30 H Urine Glucose (UA) Normal Urine Ketones 15 H Urine Occult Blood 50 H Urine Nitrite Negative Urine Bilirubin Negative Urine Urobilinogen Normal Ur Leukocyte Esterase 25 H Urine RBC 5-10 SEEN Urine WBC 0-5 SEEN Ur Squamous Epith Cells 0 SEEN Ur Transition Epith Cell 0-5 SEEN Urine Bacteria 0 SEEN Urine Mucus 0 SEEN Radiography Diagnostic Testing: Clinical Impression(s) from Imaging Studies Brain CT 02/03/25 14:08 IMPRESSION: CHRONIC CHANGES. NO ACUTE FINDINGS. Reading Location: [facility] Discharge Plan Triage Chief Complaint: Hypertension Other Complaint: Nausea/Vomiting ED Midlevel Provider: Ant Gonzales ED Provider: Melquiades Barrientos Dx/Rx/DC Orders Clinical Impression: Nausea & vomiting, Dizziness, Hypertension, Acute dehydration Instructions: ED Diet Vomiting Diarrhea, ED High Blood Pressure Hypertension Prescriptions: New ondansetron 4 mg tablet,disintegrating 4 mg PO Q8H PRN PRN (Reason: Nausea) Qty: 10 0RF amlodipine 5 mg tablet 5 mg PO DAILY Qty: 30 1RF No Action levothyroxine 75 mcg capsule 75 mcg PO DAILY sodium chloride [Saline Nasal] 0.65 % aerosol,spray 1 spray INTRANASAL PRN PRN (Reason: Allergies) fluticasone propionate 50 mcg/actuation spray,suspension 1 spray INTRANASAL DAILY PRN (Reason: Allergies) Primary Care Provider: Melquiades Valentin Referrals: Melquiades Valentin MD [Primary Care Provider] - Activity Restrictions/Additional Instructions: Take the blood pressure medicine as prescribed, follow-up with your PCP. Take the antinausea medicine as needed. Print Language: Belarusian Disposition Disposition: Home, Self Care Discharge Date/Time: 02/03/25 18:04
[2025-02-03 15:00] VITALS: BP 196/80; PULSE 81; RESP 13; O2SAT 96
[2025-02-03 15:11] LABS: Lipase 27 U/L (13-75); Troponin T High Sensitivity 13 ng/L (<=14)
[2025-02-03 15:12] LABS: ALB/GLOB Ratio 1.3 RATIO (0.9-2.4); AST(SGOT) 32 U/L (<=31); Alanine Aminotransfer ALT/SGPT 13 U/L (<=34); Albumin, Serum 4.3 g/dL (3.4-4.8); Alkaline Phosphatase 86 U/L (35-104); Anion Gap 15 (5-15); BUN 16 mg/dL (4-19); BUN/Creat Ratio 17.9 RATIO (10-20); Calcium,Total 9.5 mg/dL (7.6-11.0); Carbon Dioxide 24.1 mmol/L (21.0-32.0); Chloride 93 mmol/L (98-108); Creatinine, Serum 0.91 mg/dL (0.70-1.20); EST Glomerular Filtration Rate 61 (>60); Globulin 3.4 g/dL (2.2-4.2); Glucose 131 mg/dL (70-99); Potassium 3.7 mmol/L (3.3-5.1); Protein, Total 7.7 g/dL (5.9-8.4); Sodium Level 132 mmol/L (133-145); Total Bilirubin 0.62 mg/dL (0.00-1.30)
[2025-02-03 15:56] LABS: Bacteria 0 SEEN /hpf (None Seen); Mucous, Urine 0 SEEN /hpf (<or=2+); Squamous Epithelial Cells - UA 0 SEEN /hpf (5-10)
[2025-02-03 16:00] VITALS: BP 172/82; PULSE 74; RESP 14; O2SAT 95
[2025-02-03 16:07] LABS: Color, Urine Yellow (Yellow); Glucose, Dipstick Normal (Normal); Ketone-Dipstick 15 mg/dl (Negative); Leukocyte Esterase-Dipstick 25 /ul (Negative); Nitrite-Dipstick Negative (Negative); Occult Blood-Urine 50 /ul (Negative); Protein-Dipstick 30 mg/dl (Negative); Urine Bilirubin Dipstick Negative (Negative); Urine Clarity Clear (Clear); Urine Urobilinogen Normal (Normal); Urine pH 6.5 (5.0 - 8.0)
[2025-02-03 16:27] LABS: Red Blood Cells-Urine 5-10 SEEN /hpf (0-5)
[2025-02-03 16:28] LABS: Transitional Epithelial - Ur 0-5 SEEN /hpf (0-5); White Blood Cells 0-5 SEEN /hpf (0-5)
[2025-02-03 17:00] VITALS: BP 170/77; PULSE 76; RESP 12; O2SAT 97
[2025-02-03 17:29] LABS: Troponin T High Sens 2 HR 13 ng/L (<=14)
[2025-02-03 18:03] VITALS: BP 174/76; PULSE 80; RESP 12; TEMP 36.8; O2SAT 96
== END 2025-02-03 18:04 | disposition home or self-care (01) ==
PROVIDERS: Nurse Practitioner; Emergency Provider Emergency Medicine; PCP Family Medicine; Visit Provider Emergency Medicine
DX: I10 Essential (primary) hypertension (principal); R11.2 Nausea with vomiting, unspecified; E86.0 Dehydration; R42 Dizziness and giddiness; E03.9 Hypothyroidism, unspecified; Z79.890 Hormone replacement therapy
CPT/HCPCS: 70450; 80053; 81001; 83690; 84484; 85025; 87631; 93005; 96361; 96374; 96375; 96376; 99284; A4216; J2405

== ENCOUNTER → 2025-02-05 | Outpatient (CLI) | payer MEDICARE, SELFPAY ==
[2025-02-05 17:58] LABS: Absolute Lymphocyte Count 1.45 X10^3/uL (0.83-4.51); Absolute Neutrophil Count 3.8 X10^3/uL (2.0-7.7); Basophil# 0.04 X10^3/uL; Basophil% 0.7 % (0-1); Eosinophil# 0.12 X10^3/uL; Hematocrit 39.7 % (37-47); Hemoglobin 13.5 g/dL (12.0-15.0); Lymphocyte # 1.45 X10^3/ul (0.83-4.51); Lymphocyte % 24.5 % (19-41); Mean Corpuscular Hgb 28.9 pg (27.0-32.0); Mean Platelet Vol. 9.2 fl (6.2-12.0); Monocyte% 8.4 % (0-10); NRBC Flagged by Analyzer 0 % (0-5); Neutrophil % 64.2 % (47-70); Platelet Count 297 K/mm3 (150-450); RBC Distribution Width CV 13.4 % (11.6-14.6); RBC Distribution Width SD 41.8 fl (35.1-43.9); Red Blood Count 4.67 M/mm3 (4.2-5.4); White Blood Count 5.9 K/mm3 (4.4-11.0)
[2025-02-05 18:28] LABS: ALB/GLOB Ratio 1.4 RATIO (0.9-2.4); AST(SGOT) 22 U/L (<=31); Alanine Aminotransfer ALT/SGPT 14 U/L (<=34); Albumin, Serum 4.2 g/dL (3.4-4.8); Alkaline Phosphatase 84 U/L (35-104); Anion Gap 14 (5-15); BUN 16 mg/dL (4-19); BUN/Creat Ratio 17.6 RATIO (10-20); Bilirubin, Direct 0.32 mg/dL (0.00-0.30); Calcium,Total 9.8 mg/dL (7.6-11.0); Carbon Dioxide 25.5 mmol/L (21.0-32.0); Chloride 95 mmol/L (98-108); Creatinine, Serum 0.92 mg/dL (0.70-1.20); EST Glomerular Filtration Rate 60 (>60); Globulin 3.1 g/dL (2.2-4.2); Glucose 95 mg/dL (70-99); Potassium 3.7 mmol/L (3.3-5.1); Protein, Total 7.3 g/dL (5.9-8.4); Sodium Level 135 mmol/L (133-145); Total Bilirubin 0.77 mg/dL (0.00-1.30)
== END | disposition home or self-care (01) ==
LOC: MTLAB 16:54
PROVIDERS: PCP Family Medicine
DX: I10 Essential (primary) hypertension (principal)
CPT/HCPCS: 36415; 80053; 82248; 85025

== ENCOUNTER → 2025-02-09 | Outpatient (CLI) | payer MEDICARE, SELFPAY ==
[2025-02-09 18:29] LABS: Erythrocyte Sedimentation Rate 18 mm/hr (0-30)
[2025-02-09 19:50] LABS: ALB/GLOB Ratio 1.3 RATIO (0.9-2.4); AST(SGOT) 21 U/L (<=31); Alanine Aminotransfer ALT/SGPT 13 U/L (<=34); Albumin, Serum 4.1 g/dL (3.4-4.8); Alkaline Phosphatase 80 U/L (35-104); Anion Gap 14 (5-15); BUN 12 mg/dL (4-19); BUN/Creat Ratio 14.7 RATIO (10-20); Calcium,Total 9.7 mg/dL (7.6-11.0); Carbon Dioxide 27.2 mmol/L (21.0-32.0); Chloride 92 mmol/L (98-108); Creatinine, Serum 0.81 mg/dL (0.70-1.20); EST Glomerular Filtration Rate 70 (>60); Globulin 3.2 g/dL (2.2-4.2); Glucose 96 mg/dL (70-99); Potassium 3.5 mmol/L (3.3-5.1); Protein, Total 7.2 g/dL (5.9-8.4); Sodium Level 132 mmol/L (133-145); Total Bilirubin 0.99 mg/dL (0.00-1.30)
[2025-02-09 20:01] LABS: PTHIN 27 pg/mL (11-61)
[2025-02-10 11:11] LABS: Free T3 1.2 pg/mL (2.18-3.98)
== END | disposition home or self-care (01) ==
LOC: MTLAB 16:55
PROVIDERS: PCP Family Medicine; Referring Provider Family Medicine; Visit Provider Family Medicine
DX: R79.89 Other specified abnormal findings of blood chemistry (principal); I10 Essential (primary) hypertension
CPT/HCPCS: 36415; 80053; 83970; 84439; 84443; 84481; 85652

== ENCOUNTER → 2025-02-20 | Outpatient (CLI) | payer MEDICARE, SELFPAY ==
--- NOTE | 2025-02-20 08:37 | RDU_ITS ---
Reason For Study Reason For Study: Labile HTN Right Renal Artery Left Renal Artery Right renal artery ostium 105.3/18.1 Left renal artery ostium 121.6/18.1 RSV/EDV. PSV/EDV. Right renal artery proximal 84.1/10.6 Left renal artery proximal PSV/EDV PSV/EDV. 131.1/21.3 . Right renal artery mid 104.8/18.1 Left renal artery mid 58.0/12.4 PSV/EDV . PSV/EDV. Left renal artery distal 111.7/24.5 Right renal artery distal 115.2/20.7 PSV/EDV. PSV/EDV. Left RAR 2.0. Right RAR 1.7. Left Renal Parenchyma Right Renal Parenchyma Left upper pole medulla 32.1/9.0 Upper Pole Medula 16.6/3.8 PSV/EDV. PSV/EDV . Right upper pole medulla EDR 0.2 . Left upper pole medulla EDR 0.3 . Right upper pole medulla R.I. 0.77 . Left upper pole medulla R.I. 0.72 . Upper Jaime Cortx 18.4/5.2 PSV/EDV. UP Cortex 17.3/5.1 PSV/EDV. Right upper pole cortex EDR 0.3 . Left upper pole cortex EDR 0.3 . Right upper pole cortex R.I. 0.72 . Left upper pole cortex R.I. 0.71 . Right lower Pole medulla 18.7/4.8 Left lower Pole medulla 18.6/5.5 PSV/EDV . PSV/EDV . Right lower pole medulla EDR 0.3 . Left lower pole medulla EDR 0.3 . Right lower pole medulla R.I. 0.74 . Left lower pole medulla R.I. 0.7 . Lower Pole Cortex 14.1/4.5 PSV/EDV. Lower Pole Cortx 12.5/2.4 PSV/EDV. Right lower pole cortex EDR 0.3 . Left lower pole cortex EDR 0.2 . Right lower pole cortex R.I. 0.68 . Left lower pole cortex R.I. 0.80 . Right Renal Hilar Left Renal Hilar Right Hilar avg 42.2/11.9 PSV/EDV. LT Hilar avg 35.0/10.0 PSV/EDV . Right hilar acceleration time 80 m/sec. Left hilar acceleration time 50 m/sec. Right Renal Dimensions Left Renal Dimensions Right kidney size 11.6 cm . Left kidney size 10.45 cm . Right cortical dimension 1.18 cm . Left cortical dimension 1.06 cm . Non vascularized structure noted on right kidney that measures 3.49 x 3.92 cm. Aorta Proximal abdominal aorta 1.87x1.91 cm . Proximal abdominal aorta peak systolic velocity is 49.7 cm/sec . Distal abdominal aorta 1.95x1.82 cm . Distal abdominal aorta peak systolic velocity is 66.0 cm/sec . VL/Renal Artery Duplex Ultrasound Interpretation Summary Right renal artery patent with normal velocities and no evidence of stenosis. Left renal artery patent with normal velocities and no evidence of stenosis. Right renal vein patent. Left renal vein patent. Right kidney normal in size. Non vascularized, cystic structure noted on right kidney that measures 3.49 x 3.92 cm. Left kidney normal in size. Ordering Physician: Melquiades Valentin Referring Physician: Melquiades Valentin Performed By: Kamilla Lezama RVT
== END | disposition home or self-care (01) ==
LOC: CVS 08:37
PROVIDERS: PCP Family Medicine; Referring Provider Family Medicine; Visit Provider Family Medicine
DX: I10 Essential (primary) hypertension (principal)
CPT/HCPCS: 93975

== ENCOUNTER → 2025-08-04 | Outpatient (CLI) | payer MEDICARE, SELFPAY ==
[2025-08-04 12:33] LABS: Hematocrit 34.0 % (37-47); Hemoglobin 11.2 g/dL (12.0-15.0); Immature Granulocytes Count 0.010 X10^3/uL (0.0-0.0); Mean Corp Hgb Conc 32.9 g/dL (32-36); Mean Corpuscular Volume 89.9 fL (81-99); Mean Platelet Vol. 9.3 fl (6.2-12.0); NRBC Flagged by Analyzer 0 % (0-5); Platelet Count 252 K/mm3 (150-450); RBC Distribution Width CV 13.9 % (11.6-14.6); RBC Distribution Width SD 46.3 fl (35.1-43.9); Red Blood Count 3.78 M/mm3 (4.2-5.4); White Blood Count 4.1 K/mm3 (4.4-11.0)
[2025-08-04 16:02] LABS: AST(SGOT) 24 U/L (<=31); Alanine Aminotransfer ALT/SGPT 15 U/L (<=34); Albumin, Serum 4.2 g/dL (3.4-4.8); Alkaline Phosphatase 74 U/L (35-104); Anion Gap 10 (5-15); BUN 21 mg/dL (4-19); BUN/Creat Ratio 20.0 RATIO (10-20); Calcium,Total 9.5 mg/dL (7.6-11.0); Carbon Dioxide 28.2 mmol/L (21.0-32.0); Chloride 101 mmol/L (98-108); Globulin 2.7 g/dL (2.2-4.2); Glucose 86 mg/dL (70-99); Potassium 4.3 mmol/L (3.3-5.1)
== END | disposition home or self-care (01) ==
LOC: MFPLAB 11:30
PROVIDERS: PCP Family Medicine; Visit Provider Family Medicine
DX: E03.9 Hypothyroidism, unspecified (principal); I10 Essential (primary) hypertension
CPT/HCPCS: 36415; 80053; 84439; 84443; 85025